=== PATIENT | male | born 1945 | race Caucasian/White ===

== ENCOUNTER 2024-10-21 19:53 | Inpatient (IN) ==
[2024-10-21 20:30] LABS: Basophils # (auto) 0.01 K/uL (0.00-0.20); Basophils % (auto) 0.1 %; Hematocrit (blood only) 25.1 % (42.0-52.0); Hemoglobin 8.5 g/dl (14.0-18.0); Immature Granulocytes # (auto) 0.09 K/uL (0.01-0.20); Immature Granulocytes % (auto) 0.7 %; Lymphocytes # (auto) 0.64 K/uL (1.20-3.40); Lymphocytes % (auto) 4.7 %; Mean Corpuscular Hemoglobin 30.1 pg (25.0-34.0); Mean Corpuscular Hgb Conc 33.9 g/dL (32.0-36.0); Mean Platelet Volume 10.2 fL (9.4-12.4); Monocytes # (auto) 0.77 K/uL (0.11-0.59); Monocytes % (auto) 5.7 %; Neutrophils # (auto) 11.98 K/uL (1.40-6.50); Neutrophils % (auto) 88.8 %; Platelet Count 363 K/uL (130-400); RDW Coefficient of Variation 13.5 % (11.5-14.5); RDW Standard Deviation 43.8 fL (36.4-46.3); Red Blood Count 2.82 M/uL (4.70-6.10); White Blood Count 13.49 K/ul (4.8-10.8)
[2024-10-21] MEDS: SODIUM CHLORIDE 0.9% 500 ML IV ONE (20:39)
--- NOTE | 2024-10-21 20:42 | Emergency Department Note ---
Impression & Plan Post-operative pain, Acute hyponatremia, Back pain, Weakness ED Provider Note NAME: BERHANE KHAN AGE: 79 SEX: M : 1945 ARRIVES VIA: Walk-In INFORMANT: Patient, ED PROVIDER(S): Gray Wise DO CHIEF COMPLAINT: Weakness HPI: The patient is a 79-year-old male who presented to the emergency department for an evaluation of weakness. The patient has been having weakness over the last 24 hours. He had a recent back surgery in his lumbar spine. He is had trouble eating and getting around his home. He denies having any fever. He said no chest pain. He said no vomiting. He denies having any dysuria or frequency. He was seen by his therapist today and sent to the emergency department because they are afraid that he is just getting weaker. He is also been constipated. He was treated with [id number] medication for constipation. ROS: See above HPI for pertinent positives & negatives. A total of 10 systems reviewed and were otherwise negative. PAST MEDICAL HISTORY: See Below PAST SURGICAL HISTORY: See Below FAMILY HISTORY: See Below SOCIAL HISTORY: See Below HOME MEDICATIONS: See Below ALLERGIES: See Below VITALS: See Below PHYSICAL EXAMINATION: GENERAL: The patient is awake and alert. He is somewhat frail appearing. EYES: The conjunctivae are clear. The pupils are round and reactive. EARS, NOSE, MOUTH AND THROAT: The nose is without any evidence of any deformity. Mucous membranes are dry. NECK: The neck is nontender and supple. RESPIRATORY: Normal respiratory effort is noted there is no evidence of wheezing rhonchi or rales CARDIOVASCULAR: Regular rate and rhythm noted there no murmurs rubs or gallops normal S1 normal S2. GASTROINTESTINAL: The abdomen is mildly distended. There is no guarding rigidity noted. BACK: Postoperative site was noted. There is no erythema drainage or dehiscence. Tenderness to palpation was noted. MUSCULOSKELETAL/EXTREMITIES: There is no evidence of gross deformity full range of motion is noted in the hips and shoulders. SKIN: There is no obvious evidence of any rash. There are no petechiae, pallor or cyanosis noted. NEUROLOGIC: Patient is awake alert and oriented x3. 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 The patient has weakness in both legs. Weakness is symmetric. MEDICAL DECISION MAKING: The patient is a 79-year-old male who is 9 days status post lumbar spine surgery who presented to the emergency department for generalized weakness. The patient did not want to go to inpatient rehab. He was discharged directly to home. His states that he has not been doing well. He has not been ambulating as well. He has been having more back pain and constipation. The patient was treated with IV fluids in the emergency department. He states he has not been eating or drinking. I discussed the patient's laboratory and radiographic studies with him. He was found to have hyponatremia. The patient had studies to ensure there was no postoperative abnormality noted. CT of the lumbar spine as well as the abdomen pelvis did not appear to show any acute pathologic issues. I discussed the patient's condition with the emergency department case management. To try to get the patient into inpatient rehab at this time would not be easy so they did recommend evaluation by the hospitalist for possible inpatient management as well as evaluation by OT PT. [facility] Triage Nursing notes reviewed. Prior medical records reviewed Vital Signs: reviewed and remarkable for bradycardia. Differential diagnosis: Infection, dehydration, metabolic abnormality, hypo/hyperglycemia, electrolyte disturbance, anemia, hypoxia, cardiac sources, intracerebral event, toxicologic, neurologic, as well as other pathologies. ER treatment provided: See below Diagnostics interpreted by me: ECG: EKG was obtained in the emergency department. My interpretation is sinus bradycardia at 56 bpm. Left bundle branch block pattern was noted. There were no PVCs noted. This was compared to a tracing from February 03, 2024. No changes were noted. Cardiac Monitoring: An order was placed for continuous cardiac monitoring. The monitor shows a rate of 59 bpm with sinus bradycardia. Laboratory studies: As stated above and show below. Imaging studies: See below. Radiographic imaging was reviewed by myself Consultation(s): I discussed this case with Dr. Morales who [facility] Past Med/Surg History Problem List (Updated 10/21/24 @ 22:40 by Gray Wise DO) Weakness (Acute) Back pain (Acute) Acute hyponatremia (Acute) Post-operative pain (Acute) Anxiety Gout Prediabetes Dyslipidemia Hypertension Multilevel lumbosacral spondylosis with radiculopathy Encounter for pre-operative examination Medical History Ascending aorta enlargement Echo 12/2023: Borderline enlarged ascending aorta, 3.7 cm History of left bundle branch block (LBBB) Dating back to at least 11/2022 per cardio records Hx of diverticulitis of colon History of prostate cancer Dx "years ago"; s/p prostatectomy History of anxiety Hx of gout Hx of hyperlipidemia History of hypertension Surgical History History of ERCP EUS/ERCP (05/10/16): Glidescope#4, ETT 7.5 at [facility] Hx of difficult intubation Per [facility] 2016 records, "anesthesia notes from 2013 prostate surgery, needed glidescope after 3 attempts" Hx of cholecystectomy History of esophagogastroduodenoscopy (EGD) Hx of colonoscopy Hx of lumbosacral spine surgery 2009, L4-L5 decompression and fusion History of prostatectomy Hx of eye surgery metal removed from eye Social History Smoking Status: Never smoker Tobacco Type: Smokeless Tobacco (Dip or Chew) Second Hand Exposure: Yes (hx many years ago); Do You Dip or Chew Tobacco: Yes (Few times/week- Advised none DOS); Hx Alcohol Use: Yes Alcohol type: beer and hard liquor Hx Substance Use: No Preferred Language: Italian Communication Ability: Effective Music Specialist Required: No Beliefs That Will Affect Care: None Current Living Situation: Spouse Feels Safe at Home: Yes Assistive Devices: Cane, Crutches and Walker Allergies Allergies Allergy/AdvReac Type Severity Reaction Status Date / Time aspirin Allergy Intermediate Rash Verified 10/21/24 22:16 Home Meds Home Medications Medication Instructions Recorded Confirmed allopurinol 300 mg tablet 300 mg PO QAM 09/21/24 10/21/24 amlodipine 10 mg tablet (Norvasc) 10 mg PO QAM 09/21/24 10/21/24 atorvastatin 40 mg tablet (Lipitor) 40 mg PO QAM 09/21/24 10/21/24 cholecalciferol (vitamin D3) 125 250 mcg PO QAM 09/21/24 10/21/24 mcg (5,000 unit) tablet (Vitamin D3) lisinopril 40 mg tablet 40 mg PO QAM 09/21/24 10/21/24 sertraline 100 mg tablet (Zoloft) 100 mg PO QAM 09/21/24 10/21/24 Previous Rx's Medication Instructions Recorded oxycodone 5 mg tablet 5 mg PO Q6H PRN pain #30 tabs 10/12/24 tramadol 50 mg tablet 50 mg PO Q6H PRN pain, moderate 10/12/24 #30 tabs Results & Data (ED) Vital Signs Vital Signs - 24 hr 10/21/24 19:57 10/21/24 20:10 10/21/24 20:14 Temperature 37 C Temperature Source Temporal Artery Scan Pulse Rate 73 62 93 H Pulse Rate [Right Finger] Pulse Rhythm Regular Respiratory Rate 16 20 Respiratory Effort / Characteristics Respiratory Depth Respiratory Pattern Blood Pressure 140/59 L Blood Pressure [Right Arm] Blood Pressure Mean 86 Blood Pressure Mean [Right Arm] Pulse Oximetry 93 Oxygen Delivery Method Room Air Room Air Sepsis Recent Fever Within 48 Hours No Sepsis New/Unexplained Change in Mental Status No Sepsis Action Taken by Nursing No Action Required 10/21/24 20:20 Temperature Temperature Source Pulse Rate Pulse Rate [Right Finger] 59 L Pulse Rhythm Respiratory Rate 20 Respiratory Effort / Characteristics Non-Labored Spontaneous Respiratory Depth Normal Respiratory Pattern Regular Blood Pressure Blood Pressure [Right Arm] 149/57 H Blood Pressure Mean Blood Pressure Mean [Right Arm] 87 Pulse Oximetry 96 Oxygen Delivery Method Room Air Sepsis Recent Fever Within 48 Hours Sepsis New/Unexplained Change in Mental Status Sepsis Action Taken by Shelter Medications Current Medication List: was personally reviewed by me Laboratory Data Attestation: I reviewed the patient's lab results. 10/21/24 20:18 10/21/24 20:18 Lab Results 10/21/24 10/21/24 10/21/24 Range/Units 20:18 20:40 22:02 WBC 13.49 H (4.8-10.8) K/ul RBC 2.82 L (4.70-6.10) M/uL Hgb 8.5 L (14.0-18.0) g/dl Hct 25.1 L (42.0-52.0) % MCV 89.0 (80.0-100.0) fL MCH 30.1 (25.0-34.0) pg MCHC 33.9 (32.0-36.0) g/dL RDW Std Deviation 43.8 (36.4-46.3) fL RDW Coeff of Benson 13.5 (11.5-14.5) % Plt Count 363 (130-400) K/uL MPV 10.2 (9.4-12.4) fL Immature Gran % (Auto) 0.7 % Neut % (Auto) 88.8 % Lymph % (Auto) 4.7 % Meriwether % (Auto) 5.7 % Eos % (Auto) 0.0 % Baso % (Auto) 0.1 % Neut # (Auto) 11.98 H (1.40-6.50) K/uL Lymph # (Auto) 0.64 L (1.20-3.40) K/uL Meriwether # (Auto) 0.77 H (0.11-0.59) K/uL Eos # (Auto) 0.00 (0.00-0.50) K/uL Baso # (Auto) 0.01 (0.00-0.20) K/uL Immature Gran # (Auto) 0.09 (0.01-0.20) K/uL PT 11.3 (9.0-12.0) Seconds INR 1.0 (0.9-1.1) APTT 31 (21-31) Seconds PTT Ratio 1.2 Sodium 129 L (136-145) mmol/L Potassium 3.7 (3.5-5.1) mmol/L Chloride 93 L (98-107) mmol/L Carbon Dioxide 28 (21-32) mmol/L Anion Gap 8 (3-11) BUN 21 (6-23) mg/dl Creatinine 0.65 (0.6-1.4) mg/dl Est Cr Clr Drug Dosing Not Reportable eGFR 97.05 BUN/Creatinine Ratio 32.3 H (10-20) Glucose 120 H (70-99(Fasting)) mg/dl Calcium 9.2 (8.6-10.3) mg/dl Total Bilirubin 0.6 (0.2-1.0) mg/dl AST 57 H (13-39) U/L ALT 34 (7-52) U/L Alkaline Phosphatase 152 H (34-104) U/L Troponin I High Sens 28.1 H 33.2 H (0-20) pg/ml Total Protein 7.5 (6.0-8.3) gm/dl Albumin 3.5 (3.4-5.0) gm/dl Globulin 4.0 (2.5-4.0) gm/dl Albumin/Globulin Ratio 0.9 (0.9-2) Lipase 51 (11-82) U/L SARS-CoV-2 (PCR) NEGATIVE (Negative) Influenza Type A (PCR) Negative (Neg) Influenza Type B (PCR) Negative (Neg) RSV (RT-PCR) Negative (Neg) Administered Medications Discontinued Medications Sodium Chloride (Nss) 500 mls @ 999 mls/hr IV .Q31M ONE Stop: 10/21/24 21:04 Last Infusion: 10/21/24 21:10 Dose: Infused Documented By: Admin: 10/21/24 20:39 Dose: 999 mls/hr Documented By: RAÚL Ioversol (Optiray 320 100ml) 90 ml IV ONCE ONE Stop: 10/21/24 21:00 Last Admin: 10/21/24 20:59 Dose: 90 ml Documented By: MADDIE Imaging Data Attestation: I personally reviewed and interpreted this imaging study as follows: My Impression: 1 view chest x-ray was obtained in the emergency department. My interpretation is no free air or definite infiltrate, final report below. CT of the abdomen and pelvis was obtained in the emergency department. My interpretation is no free air or signs of bowel obstruction, final report below. Radiologist's Impression: Chest X-Ray 10/21/24 20:14 Exam(s): XR CXR 1 VIEW EXAM: XR Chest, 1 View CLINICAL HISTORY: Reason for exam: weak. TECHNIQUE: Frontal view of the chest. COMPARISON: 12/05/08 FINDINGS: Lungs: Unremarkable. No consolidation. Pleural space: Unremarkable. No pneumothorax. Heart: Unremarkable. No cardiomegaly. Mediastinum: Unremarkable. Normal mediastinal contour. Bones/joints: Unremarkable. No acute fracture. IMPRESSION: Normal chest x-ray. Electronically signed by: Arturo Smith MD 10/21/24 22:20 PM Abdomen/Pelvis CT 10/21/24 20:34 Exam(s): CT ABDOMEN + PELVIS With Contrast IV Amt: 90 ml optiray 320 EXAM: CT Abdomen and Pelvis With Intravenous Contrast CLINICAL HISTORY: Reason for exam: lower pain. TECHNIQUE: Axial computed tomography images of the abdomen and pelvis with intravenous contrast. Automated exposure control was utilized for the study. A dose lowering technique was utilized adhering to the principles of ALARA. CONTRAST: Patient received 90 ml optiray 320 of IV contrast COMPARISON: 05/08/16 FINDINGS: Lung bases: Subsegmental atelectasis seen in the lung bases. Heart: Mild coronary vascular calcification seen. ABDOMEN: Liver: Unremarkable. No mass. Gallbladder and bile ducts: Cholecystectomy. No ductal dilation. Pancreas: Unremarkable. No mass. No ductal dilation. Spleen: Unremarkable. No splenomegaly. Adrenals: Unremarkable. No mass. Kidneys and ureters: Atherosclerotic calcification seen in the proximal 1 cm of bilateral main renal arteries. No solid mass. No hydronephrosis. Stomach and bowel: Sigmoid colonic diverticulosis. No obstruction. No mucosal thickening. PELVIS: Appendix: No findings to suggest acute appendicitis. Bladder: Unremarkable. No mass. Reproductive: Ductus deferens calcifications are seen. ABDOMEN and PELVIS: Intraperitoneal space: Unremarkable. No free air. No significant fluid collection. Bones/joints: Postlaminectomy changes seen in the lumbar spine along with posterior spinal fusion changes L2-S1 levels along with disc spacers. No acute fracture. No dislocation. Soft tissues: Unremarkable. Vasculature: Moderate atherosclerotic calcification seen in the aorta and its branches. Lymph nodes: Unremarkable. No enlarged lymph nodes. IMPRESSION: No acute abdominal process identified Electronically signed by: Arturo Smith MD 10/21/24 22:[address] 10/21/24 20:34 Exam(s): CT L SPINE With Contrast IV Amt: 90 ml optiray 320 EXAM: CT Lumbar Spine With Intravenous Contrast CLINICAL HISTORY: Reason for exam: weakness, recent lumbar surgery. TECHNIQUE: Axial computed tomography images of the lumbar spine with intravenous contrast. Automated exposure control was utilized for the study. A dose lowering technique was utilized adhering to the principles of ALARA. CONTRAST: Patient received 90 ml optiray 320 of IV contrast COMPARISON: No relevant prior studies available. FINDINGS: Vertebrae: Postlaminectomy changes seen at L2-L5 levels along with L2- S1 posterior spinal fusion changes. Small foci of air seen in the laminectomy bed. The spacers are seen at L2/3, L3/4, L4/5 and L5/S1 junction. Discs/spinal canal/neural foramina: Moderately advanced multilevel degenerative disc disease changes seen along with marginal osteophytes. IMPRESSION: No acute fracture L2-S1 posterior spinal fusion changes. Electronically signed by: Arturo Smith MD 10/21/24 22:31 PM Discharge Plan Visit Data Chief Complaint: Weakness Stated Complaint: WEAKNESS ED Provider: Gray Wise Discharge Problem: Post-operative pain, Acute hyponatremia, Back pain, Weakness Patient Disposition: Being Evaluated by Hospitalist Forms Stand Alone Forms: My [facility] Prescriptions Prescriptions: No Action atorvastatin [Lipitor] 40 mg Tablet 40 mg PO QAM sertraline [Zoloft] 100 mg Tablet 100 mg PO QAM amlodipine [Norvasc] 10 mg Tablet 10 mg PO QAM allopurinol 300 mg Tablet 300 mg PO QAM lisinopril 40 mg Tablet 40 mg PO QAM cholecalciferol (vitamin D3) [Vitamin D3] 125 mcg (5,000 unit) Tablet 250 mcg PO QAM Rx Instructions: PER PT'S "TAKING 10,000 UNITS FOR 2 WEEKS POST-SURGERY". tramadol 50 mg tablet 50 mg PO Q6H PRN (Reason: pain, moderate) Qty: 30 0RF oxycodone 5 mg tablet 5 mg PO Q6H PRN (Reason: pain) Qty: 30 0RF Referrals Referrals: Arely Griffin DO [Primary Care Provider] -
[2024-10-21 20:46] LABS: Alanine Aminotransferase 34 U/L (7-52); Albumin Globulin Ratio 0.9 (0.9-2); Albumin Level 3.5 gm/dl (3.4-5.0); Alkaline Phosphatase 152 U/L (34-104); Anion Gap 8 (3-11); Aspartate Aminotransferase 57 U/L (13-39); BUN Creatinine Ratio 32.3 (10-20); Bilirubin,Total 0.6 mg/dl (0.2-1.0); Blood Urea Nitrogen 21 mg/dl (6-23); Calcium 9.2 mg/dl (8.6-10.3); Carbon Dioxide 28 mmol/L (21-32); Chloride 93 mmol/L (98-107); Glucose 120 mg/dl (70-99(Fasting)); Lipase 51 U/L (11-82); Potassium 3.7 mmol/L (3.5-5.1); Sodium 129 mmol/L (136-145); Total Protein 7.5 gm/dl (6.0-8.3)
[2024-10-21 20:53] LABS: Troponin I High Sensitivity 28.1 pg/ml (0-20)
[2024-10-21] MEDS: OPTIRAY 320 100ml IV ONE (20:59)
[2024-10-21 21:09] LABS: Partial Thromboplastin Ratio 1.2; Partial Thromboplastin Time 31 Seconds (21-31); Prothrombin Time 11.3 Seconds (9.0-12.0)
[2024-10-21 21:26] LABS: Influenza A virus by PCR Negative (Neg); Influenza B virus by PCR Negative (Neg); RSV by PCR Negative (Neg); SARS CoV2 RNA(COVID-19) Ceph NEGATIVE (Negative)
--- NOTE | 2024-10-21 22:21 | XRay Report ---
Exam(s): XR CXR 1 VIEW EXAM: XR Chest, 1 View CLINICAL HISTORY: Reason for exam: weak. TECHNIQUE: Frontal view of the chest. COMPARISON: 12/05/08 FINDINGS: Lungs: Unremarkable. No consolidation. Pleural space: Unremarkable. No pneumothorax. Heart: Unremarkable. No cardiomegaly. Mediastinum: Unremarkable. Normal mediastinal contour. Bones/joints: Unremarkable. No acute fracture. IMPRESSION: Normal chest x-ray. Electronically signed by: Arturo Smith MD 10/21/24 22:20 PM
--- NOTE | 2024-10-21 22:28 | CT Scan Report ---
Exam(s): CT ABDOMEN + PELVIS With Contrast IV Amt: 90 ml optiray 320 EXAM: CT Abdomen and Pelvis With Intravenous Contrast CLINICAL HISTORY: Reason for exam: lower pain. TECHNIQUE: Axial computed tomography images of the abdomen and pelvis with intravenous contrast. Automated exposure control was utilized for the study. A dose lowering technique was utilized adhering to the principles of ALARA. CONTRAST: Patient received 90 ml optiray 320 of IV contrast COMPARISON: 05/08/16 FINDINGS: Lung bases: Subsegmental atelectasis seen in the lung bases. Heart: Mild coronary vascular calcification seen. ABDOMEN: Liver: Unremarkable. No mass. Gallbladder and bile ducts: Cholecystectomy. No ductal dilation. Pancreas: Unremarkable. No mass. No ductal dilation. Spleen: Unremarkable. No splenomegaly. Adrenals: Unremarkable. No mass. Kidneys and ureters: Atherosclerotic calcification seen in the proximal 1 cm of bilateral main renal arteries. No solid mass. No hydronephrosis. Stomach and bowel: Sigmoid colonic diverticulosis. No obstruction. No mucosal thickening. PELVIS: Appendix: No findings to suggest acute appendicitis. Bladder: Unremarkable. No mass. Reproductive: Ductus deferens calcifications are seen. ABDOMEN and PELVIS: Intraperitoneal space: Unremarkable. No free air. No significant fluid collection. Bones/joints: Postlaminectomy changes seen in the lumbar spine along with posterior spinal fusion changes L2-S1 levels along with disc spacers. No acute fracture. No dislocation. Soft tissues: Unremarkable. Vasculature: Moderate atherosclerotic calcification seen in the aorta and its branches. Lymph nodes: Unremarkable. No enlarged lymph nodes. IMPRESSION: No acute abdominal process identified Electronically signed by: Arturo Smith MD 10/21/24 22:27 PM
--- NOTE | 2024-10-21 22:32 | CT Scan Report ---
Exam(s): CT L SPINE With Contrast IV Amt: 90 ml optiray 320 EXAM: CT Lumbar Spine With Intravenous Contrast CLINICAL HISTORY: Reason for exam: weakness, recent lumbar surgery. TECHNIQUE: Axial computed tomography images of the lumbar spine with intravenous contrast. Automated exposure control was utilized for the study. A dose lowering technique was utilized adhering to the principles of ALARA. CONTRAST: Patient received 90 ml optiray 320 of IV contrast COMPARISON: No relevant prior studies available. FINDINGS: Vertebrae: Postlaminectomy changes seen at L2-L5 levels along with L2- S1 posterior spinal fusion changes. Small foci of air seen in the laminectomy bed. The spacers are seen at L2/3, L3/4, L4/5 and L5/S1 junction. Discs/spinal canal/neural foramina: Moderately advanced multilevel degenerative disc disease changes seen along with marginal osteophytes. IMPRESSION: No acute fracture L2-S1 posterior spinal fusion changes. Electronically signed by: Arturo Smith MD 10/21/24 22:31 PM
--- NOTE | 2024-10-21 23:52 | History & Physical Report ---
Date of Service October 21, 2024 Assessment & Plan (1) Weakness: Plan: 79-year-old male with past medical history significant for dyslipidemia, prediabetes, ascending aortic enlargement, left bundle branch block, hypertension, irritable bowel syndrome, steatohepatitis, generalized osteoarthritis, lumbar disc disease, history of prostate cancer, spinal stenosis status post back surgery on 10/11/2024 comes because of weakness and ambulatory dysfunction and back pain. As per after back surgery rehab was recommended but patient declined and went home. He was getting physical therapy at home. For first few days he did okay but last few days he was having difficulty ambulating. He was having weakness and also severe back pain which causing ambulatory dysfunction. He also had a bowel accident because he could not ambulate to the bathroom in time as per the . Patient is hard of hearing. in the room helped with H&P. Patient denies any headache. No runny nose or sore throat. No cough. No fevers. No chest pain or shortness of breath. No nausea. Drinking okay but not eating much as per . No abdominal pain. Constipated. Denies any blood in stools or black stools. Micturating okay. Hemodynamics are okay. Weakness Ambulatory dysfunction Back pain Recent back surgery PT OT CT lumbar spine and CT abdomen pelvis no acute findings [facility]ospine consult May need rehab placement Hyponatremia Sodium 129 Will follow urine osmolality, serum osmolality and urine sodium levels Gentle fluids Could be contributing to weakness Follow repeat labs closely Leukocytosis Chest x-ray okay Will follow UA Mild elevation troponin Initial troponin 28 and repeat 33 asymptomatic EKG okay We will follow repeat levels If any concerns will consult cardiology and echo Anemia Hemoglobin 8.5 Hemoglobin was 8 on 10/15/2024 Mostly Postop Needs follow-up Prediabetes Follow HbA1c levels Hypertension on amlodipine, and lisinopril Will monitor Hyperlipidemia On statin Depression On Zoloft Ascending aortic enlargement Borderline enlarged at 3.7 cm on echo 12/2023 DVT prophylaxis Lovenox. Will monitor h and h Disposition Medical floor Full code History of Present Illness Chief Complaint: Weakness and ambulatory dysfunction Primary Care Provider: Arely Griffin DO 79-year-old male with past medical history significant for dyslipidemia, prediabetes, ascending aortic enlargement, left bundle branch block, hypertension, irritable bowel syndrome, steatohepatitis, generalized osteoarthritis, lumbar disc disease, history of prostate cancer, spinal stenosis status post back surgery on 10/11/2024 comes because of weakness and ambulatory dysfunction and back pain. As per after back surgery rehab was recommended but patient declined and went home. He was getting physical therapy at home. For first few days he did okay but last few days he was having difficulty ambulating. He was having weakness and also severe back pain which causing ambulatory dysfunction. He also had a bowel accident because he could not ambulate to the bathroom in time as per the . Patient is hard of hearing. in the room helped with H&P. Patient denies any headache. No runny nose or sore throat. No cough. No fevers. No chest pain or shortness of breath. No nausea. Drinking okay but not eating much as per . No abdominal pain. Constipated. Denies any blood in stools or black stools. Micturating okay. Hemodynamics are okay. Past medical history. As mentioned above Past surgical history. Colonoscopy. EGD. EGD with biopsy. EGD with endoscopic ultrasound. ERCP. Injection of lumbosacral spine. Laparoscopic cholecystectomy. Excision of the neck/chest subcutaneous tumor. Robotic laparoscopic prostatectomy. Social history. . No smoking. Snuff. 5.8 standard drinks of alcohol per week as per epic. No drug use. Family history. Mother had heart disorder. Paternal grandmother had heart disorder. Paternal grandfather had heart disorder. Allergies Allergy/AdvReac Type Severity Reaction Status Date / Time aspirin Allergy Intermediate Rash Verified 10/21/24 22:16 Home Medications Medication Instructions Recorded Confirmed Type allopurinol 300 mg tablet 300 mg PO QAM 09/21/24 10/21/24 History amlodipine 10 mg tablet (Norvasc) 10 mg PO QAM 09/21/24 10/21/24 History atorvastatin 40 mg tablet (Lipitor) 40 mg PO QAM 09/21/24 10/21/24 History cholecalciferol (vitamin D3) 125 250 mcg PO QAM 09/21/24 10/21/24 History mcg (5,000 unit) tablet (Vitamin D3) lisinopril 40 mg tablet 40 mg PO QAM 09/21/24 10/21/24 History sertraline 100 mg tablet (Zoloft) 100 mg PO QAM 09/21/24 10/21/24 History oxycodone 5 mg tablet 5 mg PO Q6H PRN pain #30 tabs 10/12/24 10/21/24 Rx tramadol 50 mg tablet 50 mg PO Q6H PRN pain, moderate 10/12/24 10/21/24 Rx #30 tabs Past Med/Surg History Problem List (Updated 10/21/24 @ 22:40 by Gray Wise DO) Weakness (Acute) Back pain (Acute) Acute hyponatremia (Acute) Post-operative pain (Acute) Anxiety Gout Prediabetes Dyslipidemia Hypertension Multilevel lumbosacral spondylosis with radiculopathy Encounter for pre-operative examination Medical History Ascending aorta enlargement Echo 12/2023: Borderline enlarged ascending aorta, 3.7 cm History of left bundle branch block (LBBB) Dating back to at least 11/2022 per cardio records Hx of diverticulitis of colon History of prostate cancer Dx "years ago"; s/p prostatectomy History of anxiety Hx of gout Hx of hyperlipidemia History of hypertension Surgical History History of ERCP EUS/ERCP (05/10/16): Glidescope#4, ETT 7.5 at [facility] Hx of difficult intubation Per [facility] 2016 records, "anesthesia notes from 2013 prostate surgery, needed glidescope after 3 attempts" Hx of cholecystectomy History of esophagogastroduodenoscopy (EGD) Hx of colonoscopy Hx of lumbosacral spine surgery 2009, L4-L5 decompression and fusion History of prostatectomy Hx of eye surgery metal removed from eye Social History Smoking Status: Never smoker Tobacco Type: Smokeless Tobacco (Dip or Chew) Second Hand Exposure: Yes; Do You Dip or Chew Tobacco: Yes; Tobacco Cessation Education Requested by Patient: No Hx Alcohol Use: Yes Alcohol type: beer Hx Substance Use: No Preferred Language: Montserratian Communication Ability: Effective Molding Cutter Required: No Beliefs That Will Affect Care: None Current Living Situation: Spouse Current Living Situation Comment: lives with Other Information That Helps Us Care for You: No Feels Safe at Home: Yes Safety Concerns: Feels Safe At This Time Assistive Devices: Glasses and Walker Review of Systems Review of Systems: All systems reviewed & are unremarkable except as noted in HPI & below Physical Exam Physical Exam: General- Not in distress Head- atraumatic Eyes- PERRL. ENT- oropharynx clear Neck- supple, no JVD. Lungs- clear to auscultation no wheezing or crackles Heart- regular rhythm; no murmur, no gallop. Abdomen- normal bowel sounds, soft, nontender, no distension Extremities- no pretibial edema, no erythema seen Neuro- alert, oriented ; PERRL,no facial palsy; no dysarthria; moves extremities Musculoskeletal recent lower back surgery site no obvious drainage or erythema seen Results & Data Results & Data Vital Signs (Past 12 Hours) Vital Signs Temp Pulse Pulse Pulse Resp BP BP 10/21/24 23:00 64 24 146/79 H 10/21/24 20:20 59 L 20 149/57 H 10/21/24 20:14 93 H 20 10/21/24 20:10 62 10/21/24 19:57 37 C 73 16 140/59 L Pulse Ox O2 Del Method 10/21/24 23:00 94 10/21/24 20:20 96 Room Air 10/21/24 20:14 93 Room Air 10/21/24 20:10 10/21/24 19:57 Room Air Diagnostic Findings Laboratory Results WBC 13.49 K/ul (4.8-10.8) H 10/21/24 20:18 RBC 2.82 M/uL (4.70-6.10) L 10/21/24 20:18 Hgb 8.5 g/dl (14.0-18.0) L 10/21/24 20:18 Hct 25.1 % (42.0-52.0) L 10/21/24 20:18 MCV 89.0 fL (80.0-100.0) 10/21/24 20:18 MCH 30.1 pg (25.0-34.0) 10/21/24 20:18 MCHC 33.9 g/dL (32.0-36.0) 10/21/24 20:18 RDW Std Deviation 43.8 fL (36.4-46.3) 10/21/24 20:18 RDW Coeff of Benson 13.5 % (11.5-14.5) 10/21/24 20:18 Plt Count 363 K/uL (130-400) 10/21/24 20:18 MPV 10.2 fL (9.4-12.4) 10/21/24 20:18 Immature Gran % (Auto) 0.7 % 10/21/24 20:18 Neut % (Auto) 88.8 % 10/21/24 20:18 Lymph % (Auto) 4.7 % 10/21/24 20:18 Sequoyah % (Auto) 5.7 % 10/21/24 20:18 Eos % (Auto) 0.0 % 10/21/24 20:18 Baso % (Auto) 0.1 % 10/21/24 20:18 Neut # (Auto) 11.98 K/uL (1.40-6.50) H 10/21/24 20:18 Lymph # (Auto) 0.64 K/uL (1.20-3.40) L 10/21/24 20:18 Sequoyah # (Auto) 0.77 K/uL (0.11-0.59) H 10/21/24 20:18 Eos # (Auto) 0.00 K/uL (0.00-0.50) 10/21/24 20:18 Baso # (Auto) 0.01 K/uL (0.00-0.20) 10/21/24 20:18 Immature Gran # (Auto) 0.09 K/uL (0.01-0.20) 10/21/24 20:18 PT 11.3 Seconds (9.0-12.0) 10/21/24 20:18 INR 1.0 (0.9-1.1) 10/21/24 20:18 APTT 31 Seconds (21-31) 10/21/24 20:18 PTT Ratio 1.2 10/21/24 20:18 Sodium 129 mmol/L (136-145) L 10/21/24 20:18 Potassium 3.7 mmol/L (3.5-5.1) 10/21/24 20:18 Chloride 93 mmol/L (98-107) L 10/21/24 20:18 Carbon Dioxide 28 mmol/L (21-32) 10/21/24 20:18 Anion Gap 8 (3-11) 10/21/24 20:18 BUN 21 mg/dl (6-23) 10/21/24 20:18 Creatinine 0.65 mg/dl (0.6-1.4) 10/21/24 20:18 Est Cr Clr Drug Dosing Not Reportable 10/21/24 20:18 eGFR 97.05 10/21/24 20:18 BUN/Creatinine Ratio 32.3 (10-20) H 10/21/24 20:18 Glucose 120 mg/dl (70-99(Fasting)) H 10/21/24 20:18 Osmolality 272 mOsm/kg (280-300) L 10/21/24 20:18 Calcium 9.2 mg/dl (8.6-10.3) 10/21/24 20:18 Total Bilirubin 0.6 mg/dl (0.2-1.0) 10/21/24 20:18 AST 57 U/L (13-39) H 10/21/24 20:18 ALT 34 U/L (7-52) 10/21/24 20:18 Alkaline Phosphatase 152 U/L (34-104) H 10/21/24 20:18 Troponin I High Sens 33.2 pg/ml (0-20) H 10/21/24 22:02 Total Protein 7.5 gm/dl (6.0-8.3) 10/21/24 20:18 Albumin 3.5 gm/dl (3.4-5.0) 10/21/24 20:18 Globulin 4.0 gm/dl (2.5-4.0) 10/21/24 20:18 Albumin/Globulin Ratio 0.9 (0.9-2) 10/21/24 20:18 Lipase 51 U/L (11-82) 10/21/24 20:18 SARS-CoV-2 (PCR) NEGATIVE (Negative) 10/21/24 20:40 Influenza Type A (PCR) Negative (Neg) 10/21/24 20:40 Influenza Type B (PCR) Negative (Neg) 10/21/24 20:40 RSV (RT-PCR) Negative (Neg) 10/21/24 20:40 Impressions Chest X-Ray 10/21/24 20:14 Exam(s): XR CXR 1 VIEW EXAM: XR Chest, 1 View CLINICAL HISTORY: Reason for exam: weak. TECHNIQUE: Frontal view of the chest. COMPARISON: 12/05/08 FINDINGS: Lungs: Unremarkable. No consolidation. Pleural space: Unremarkable. No pneumothorax. Heart: Unremarkable. No cardiomegaly. Mediastinum: Unremarkable. Normal mediastinal contour. Bones/joints: Unremarkable. No acute fracture. IMPRESSION: Normal chest x-ray. Electronically signed by: Arturo Smith MD 10/21/24 22:20 PM Abdomen/Pelvis CT 10/21/24 20:34 Exam(s): CT ABDOMEN + PELVIS With Contrast IV Amt: 90 ml optiray 320 EXAM: CT Abdomen and Pelvis With Intravenous Contrast CLINICAL HISTORY: Reason for exam: lower pain. TECHNIQUE: Axial computed tomography images of the abdomen and pelvis with intravenous contrast. Automated exposure control was utilized for the study. A dose lowering technique was utilized adhering to the principles of ALARA. CONTRAST: Patient received 90 ml optiray 320 of IV contrast COMPARISON: 05/08/16 FINDINGS: Lung bases: Subsegmental atelectasis seen in the lung bases. Heart: Mild coronary vascular calcification seen. ABDOMEN: Liver: Unremarkable. No mass. Gallbladder and bile ducts: Cholecystectomy. No ductal dilation. Pancreas: Unremarkable. No mass. No ductal dilation. Spleen: Unremarkable. No splenomegaly. Adrenals: Unremarkable. No mass. Kidneys and ureters: Atherosclerotic calcification seen in the proximal 1 cm of bilateral main renal arteries. No solid mass. No hydronephrosis. Stomach and bowel: Sigmoid colonic diverticulosis. No obstruction. No mucosal thickening. PELVIS: Appendix: No findings to suggest acute appendicitis. Bladder: Unremarkable. No mass. Reproductive: Ductus deferens calcifications are seen. ABDOMEN and PELVIS: Intraperitoneal space: Unremarkable. No free air. No significant fluid collection. Bones/joints: Postlaminectomy changes seen in the lumbar spine along with posterior spinal fusion changes L2-S1 levels along with disc spacers. No acute fracture. No dislocation. Soft tissues: Unremarkable. Vasculature: Moderate atherosclerotic calcification seen in the aorta and its branches. Lymph nodes: Unremarkable. No enlarged lymph nodes. IMPRESSION: No acute abdominal process identified Electronically signed by: Arturo Smith MD 10/21/24 22:[address] 10/21/24 20:34 Exam(s): CT L SPINE With Contrast IV Amt: 90 ml optiray 320 EXAM: CT Lumbar Spine With Intravenous Contrast CLINICAL HISTORY: Reason for exam: weakness, recent lumbar surgery. TECHNIQUE: Axial computed tomography images of the lumbar spine with intravenous contrast. Automated exposure control was utilized for the study. A dose lowering technique was utilized adhering to the principles of ALARA. CONTRAST: Patient received 90 ml optiray 320 of IV contrast COMPARISON: No relevant prior studies available. FINDINGS: Vertebrae: Postlaminectomy changes seen at L2-L5 levels along with L2- S1 posterior spinal fusion changes. Small foci of air seen in the laminectomy bed. The spacers are seen at L2/3, L3/4, L4/5 and L5/S1 junction. Discs/spinal canal/neural foramina: Moderately advanced multilevel degenerative disc disease changes seen along with marginal osteophytes. IMPRESSION: No acute fracture L2-S1 posterior spinal fusion changes. Electronically signed by: Arturo Smith MD 10/21/24 22:31 PM ECG Additional Comments: ECG. Sinus bradycardia with sinus arrhythmia rate of 56. Left bundle branch block. No significant change was found. Code Status & VTE Plan VTE Prophylaxis Plan VTE Prophylaxis will be ordered: Yes
[2024-10-22] MEDS ORDERED: POLYETHYLENE (MIRALAX) 17 GM PACK PO PRN (01:57)
[2024-10-22] MEDS ORDERED: ACETAMINOPHEN 325 MG TAB PO PRN (01:57)
[2024-10-22] MEDS ORDERED: traMADol HCL 50 MG TABLET PO PRN (01:57)
[2024-10-22] MEDS: SODIUM CHLORIDE 0.9% 1,000 ML IV SCH (02:25)
[2024-10-22] MEDS: allopurinoL 300 MG TAB PO SCH (08:11)
[2024-10-22] MEDS: lisinopril 40 MG TAB PO SCH (08:11)
[2024-10-22] MEDS: CHOLECALCIFEROL 125 MCG (5,000 UNITS) TAB PO SCH (08:11)
[2024-10-22] MEDS: ENOXAPARIN INJ 40 MG/0.4 ML SYR SQ SCH (08:11)
[2024-10-22] MEDS: ATORVASTATIN 40 MG TAB PO SCH (08:11)
[2024-10-22] MEDS: SERTRALINE HCL 100 MG TABLET PO SCH (08:11)
[2024-10-22] MEDS: amLODIPine BESYLATE 5 MG TAB PO SCH (08:11)
[2024-10-22] MEDS: oxyCODONE HCL IR 5 MG TAB (IMMEDIATE RELEASE) PO PRN (08:15)
[2024-10-22] MEDS ORDERED: CHOLECALCIFEROL 125 MCG (5,000 UNITS) TAB PO SCH (09:00)
[2024-10-22 10:18] LABS: Basophils # (auto) 0.01 K/uL (0.00-0.20); Basophils % (auto) 0.1 %; Eosinophils # (auto) 0.02 K/uL (0.00-0.50); Eosinophils % (auto) 0.2 %; Hematocrit (blood only) 22.9 % (42.0-52.0); Hemoglobin 7.7 g/dl (14.0-18.0); Immature Granulocytes # (auto) 0.08 K/uL (0.01-0.20); Immature Granulocytes % (auto) 0.7 %; Lymphocytes # (auto) 0.75 K/uL (1.20-3.40); Lymphocytes % (auto) 6.9 %; Mean Corpuscular Hemoglobin 30.4 pg (25.0-34.0); Mean Corpuscular Hgb Conc 33.6 g/dL (32.0-36.0); Mean Corpuscular Volume 90.5 fL (80.0-100.0); Mean Platelet Volume 10.5 fL (9.4-12.4); Monocytes # (auto) 0.64 K/uL (0.11-0.59); Monocytes % (auto) 5.9 %; Neutrophils # (auto) 9.31 K/uL (1.40-6.50); Neutrophils % (auto) 86.2 %; Platelet Count 314 K/uL (130-400); RDW Coefficient of Variation 13.3 % (11.5-14.5); RDW Standard Deviation 43.9 fL (36.4-46.3); Red Blood Count 2.53 M/uL (4.70-6.10); White Blood Count 10.81 K/ul (4.8-10.8)
--- NOTE | 2024-10-22 10:19 | Electrocardiogram Report ---
Test Reason : Blood Pressure : */* mmHG Vent. Rate : 56 BPM Atrial Rate : 56 BPM P-R Int : 188 ms QRS Dur : 144 ms QT Int : 466 ms P-R-T Axes : -9 -9 90 degrees QTcB Int : 449 ms Sinus bradycardia with sinus arrhythmia Left bundle branch block Abnormal ECG When compared with ECG of 21-Jun-2016 06:35, No significant change was found Confirmed by Gray Sr ([id number]) on 10/22/2024 10:18:26 AM Referred By: REFERRED SELF Confirmed By: Gray Sr
[2024-10-22 10:33] LABS: BUN Creatinine Ratio 27.6 (10-20); Calcium 8.4 mg/dl (8.6-10.3); Creatinine Clr Calc Pharmacy 96.3 ml/min; Magnesium 1.3 mg/dl (1.7-2.4); Potassium 3.6 mmol/L (3.5-5.1)
[2024-10-22 10:54] LABS: RBC Morphology Unremarkable
[2024-10-22] MEDS: bisacodyL 5 MG TABEC PO ONE (11:28)
--- NOTE | 2024-10-22 11:34 | Hospitalist Progress Note ---
Date of Service October 22, 2024 Assessment & Plan (1) Weakness: Plan: Mr. Polo is a 79-year-old male with past medical history significant for dyslipidemia, prediabetes, ascending aortic enlargement, left bundle branch block, hypertension, irritable bowel syndrome, steatohepatitis, generalized osteoarthritis, lumbar disc disease, history of prostate cancer, spinal stenosis status post back surgery on 10/11/2024 comes because of weakness and ambulatory dysfunction and back pain. Patient states that he has been progressively weaker since his procedure. Plan for rehab #Generalized Weakness #Ambulatory dysfunction #Ongoing Back pain s/p back surgery PT OT: rehab CT lumbar spine and CT abdomen pelvis no acute findings Orthospine consult: strongly recommends rehab #Hyponatremia Sodium 129-->131 Will follow urine osmolality, serum osmolality and urine sodium levels Gentle fluids Could be contributing to weakness Follow repeat labs closely #Leukocytosis improving no signs of infection Chest x-ray okay suspect reactive iso pain #Mild elevation troponin plateaued, asymptomatic EKG okay likely demand, low suspicion for ACS #Anemia Hemoglobin 8.5 Hemoglobin was 8 on 10/15/2024 notable postop changes #Prediabetes CTM glucose in 120s #Hypertension on amlodipine, and lisinopril #Hyperlipidemia On statin #Depression On Zoloft #Ascending aortic enlargement Borderline enlarged at 3.7 cm on echo 12/2023 DVT prophylaxis Lovenox. Disposition Medical floor Full code Admission and Anticipated Discharge Date Admission Date: October 21, 2024 Subjective Reports feeling better laying flat in bed He states the pain is not as severe as it was on presentation tolerated PT Physical Exam Constitutional: WD/WN, vitals as above Respiratory: normal respiratory effort, lungs clear to auscultation Cardiovascular: RRR, no murmur, no edema Gastrointestinal (Abdomen): normal bowel sounds, soft, nontender, no hepatosplenomegaly Results & Data Results & Data Vital Signs (Past 12 Hours) Vital Signs Temp Pulse Pulse Resp BP BP BP 10/22/24 09:21 10/22/24 07:27 36.8 C 59 L 18 159/67 H 10/22/24 02:11 10/22/24 02:11 36.6 C 55 L 16 154/71 H 10/22/24 01:10 60 24 157/80 H 10/22/24 00:12 60 18 142/66 H Pulse Ox O2 Del Method 10/22/24 09:21 Room Air 10/22/24 07:27 95 Room Air 10/22/24 02:11 Room Air 10/22/24 02:11 94 Room Air 10/22/24 01:10 94 Room Air 10/22/24 00:12 94 Room Air Laboratory Results Short CBC 10/21/24 10/22/24 Range/Units 20:18 09:00 WBC 13.49 H 10.81 H (4.8-10.8) K/ul Hgb 8.5 L 7.7 L (14.0-18.0) g/dl Hct 25.1 L 22.9 L (42.0-52.0) % Plt Count 363 314 (130-400) K/uL BMP 10/21/24 10/22/24 20:18 09:00 Sodium 129 L 131 L Potassium 3.7 3.6 Chloride 93 L 96 L Carbon Dioxide 28 28 BUN 21 16 Creatinine 0.65 0.58 L Glucose 120 H 129 H Calcium 9.2 8.4 L Liver Function 10/21/24 Range/Units 20:18 Total Bilirubin 0.6 (0.2-1.0) mg/dl AST 57 H (13-39) U/L ALT 34 (7-52) U/L Alkaline Phosphatase 152 H (34-104) U/L Albumin 3.5 (3.4-5.0) gm/dl Medications Administered Home Medications Medication Instructions Recorded Confirmed Last Taken allopurinol 300 mg tablet 300 mg PO QAM 09/21/24 10/21/24 10/21/24 amlodipine 10 mg tablet (Norvasc) 10 mg PO QAM 09/21/24 10/21/24 10/21/24 atorvastatin 40 mg tablet (Lipitor) 40 mg PO QAM 09/21/24 10/21/24 10/21/24 cholecalciferol (vitamin D3) 125 250 mcg PO QAM 09/21/24 10/21/24 10/21/24 mcg (5,000 unit) tablet (Vitamin D3) lisinopril 40 mg tablet 40 mg PO QAM 09/21/24 10/21/24 10/21/24 sertraline 100 mg tablet (Zoloft) 100 mg PO QAM 09/21/24 10/21/24 10/21/24 oxycodone 5 mg tablet 5 mg PO Q6H PRN pain #30 tabs 10/12/24 10/21/24 Unknown tramadol 50 mg tablet 50 mg PO Q6H PRN pain, moderate 10/12/24 10/21/24 Unknown #30 tabs Active Medications Generic Name Dose Route Start Last Admin Trade Name Freq PRN Reason Stop Dose Admin Allopurinol 300 mg 10/22/24 09:00 10/22/24 08:11 Allopurinol 300 Mg Tab PO 11/21/24 08:59 300 mg QAM ARIANNA Administration Amlodipine Besylate 10 mg 10/22/24 09:00 10/22/24 08:11 Amlodipine Besylate 5 Mg Tab PO 11/21/24 08:59 10 mg QAM ARIANNA Administration Atorvastatin Calcium 40 mg 10/22/24 09:00 10/22/24 08:11 Atorvastatin 40 Mg Tab PO 11/21/24 08:59 40 mg QAM ARIANNA Administration Enoxaparin Sodium 40 mg 10/22/24 09:00 10/22/24 08:11 Enoxaparin Inj 40 Mg/0.4 Ml Syr SQ 11/21/24 08:59 40 mg Q24H ARIANAN Administration Sodium Chloride 1,000 mls @ 50 mls/hr 10/22/24 01:57 10/22/24 02:25 Nss IV 10/23/24 01:56 50 mls/hr .Q20H ARIANNA Administration Lisinopril 40 mg 10/22/24 09:00 10/22/24 08:11 Lisinopril 40 Mg Tab PO 11/21/24 08:59 40 mg QAM ARIANNA Administration Oxycodone HCl 5 mg 10/22/24 01:57 10/22/24 17:07 Oxycodone Hcl Ir 5 Mg Tab (Immediate Release) PO 11/05/24 01:56 5 mg Q6H PRN Administration Severe Pain (Scale 7, 8, 9,10) Sertraline HCl 100 mg 10/22/24 09:00 10/22/24 08:11 Sertraline Hcl 100 Mg Tablet PO 11/21/24 08:59 100 mg QAM ARIANNA Administration Vitamin D 125 mcg 10/22/24 09:00 10/22/24 08:11 Cholecalciferol 125 Mcg (5,000 Units) Tab PO 11/21/24 08:59 125 mcg QAM ARIANNA Administration
[2024-10-22 11:46] LABS: Immature Retic Fraction 14.2 % (2.3-15.9); Reticulated Hemoglobin 26.7 pg (28.2-36.6); Reticulocyte % 1.85 % (0.50-2.00)
[2024-10-22 13:03] LABS: Ferritin 445.2 ng/ml (8-388)
[2024-10-22 13:09] LABS: Folate (Folic Acid),Ser orPlas 7.44 ng/ml (>5.38)
--- NOTE | 2024-10-22 14:44 | Orthopedic Consultation ---
Date of Consultation October 22, 2024 Assessment & Plan (1) Weakness: Patient did present with electrolyte imbalance. He feels his strength is improving. I recommend physical therapy without the weekend and strong consideration for rehab placement upon discharge. History of Present Illness Reason for Consultation: Postoperative back and leg pain Attending Physician: Reena Srinivasan MD History of Present Illness This is a 79-year-old male well-known to me that is status post lumbar decompression fusion. He presents yesterday with worsening back pain and inability to manage his self at home. This afternoon he feels his symptoms have improved. He states he is tolerating physical therapy. Denies any numbness or tingling into his legs. Continues to complain of some right upper buttock discomfort. Allergies Allergy/AdvReac Type Severity Reaction Status Date / Time aspirin Allergy Intermediate Rash Verified 10/21/24 22:16 Home Medications Medication Instructions Recorded Confirmed Type allopurinol 300 mg tablet 300 mg PO QAM 09/21/24 10/21/24 History amlodipine 10 mg tablet (Norvasc) 10 mg PO QAM 09/21/24 10/21/24 History atorvastatin 40 mg tablet (Lipitor) 40 mg PO QAM 09/21/24 10/21/24 History cholecalciferol (vitamin D3) 125 250 mcg PO QAM 09/21/24 10/21/24 History mcg (5,000 unit) tablet (Vitamin D3) lisinopril 40 mg tablet 40 mg PO QAM 09/21/24 10/21/24 History sertraline 100 mg tablet (Zoloft) 100 mg PO QAM 09/21/24 10/21/24 History oxycodone 5 mg tablet 5 mg PO Q6H PRN pain #30 tabs 10/12/24 10/21/24 Rx tramadol 50 mg tablet 50 mg PO Q6H PRN pain, moderate 10/12/24 10/21/24 Rx #30 tabs Patient History Medical History Ascending aorta enlargement Echo 12/2023: Borderline enlarged ascending aorta, 3.7 cm History of left bundle branch block (LBBB) Dating back to at least 11/2022 per cardio records Hx of diverticulitis of colon History of prostate cancer Dx "years ago"; s/p prostatectomy History of anxiety Hx of gout Hx of hyperlipidemia History of hypertension Surgical History History of ERCP EUS/ERCP (05/10/16): Glidescope#4, ETT 7.5 at [facility] Hx of difficult intubation Per [facility] 2016 records, "anesthesia notes from 2012 prostate surgery, needed glidescope after 3 attempts" Hx of cholecystectomy History of esophagogastroduodenoscopy (EGD) Hx of colonoscopy Hx of lumbosacral spine surgery 2010, L4-L5 decompression and fusion History of prostatectomy Hx of eye surgery metal removed from eye Social History Smoking Status: Never smoker Tobacco Type: Smokeless Tobacco (Dip or Chew) Second Hand Exposure: Yes; Do You Dip or Chew Tobacco: Yes; Tobacco Cessation Education Requested by Patient: No Hx Alcohol Use: Yes Alcohol type: beer Hx Substance Use: No Preferred Language: Slovak Communication Ability: Effective Commodity Merchant Required: No Beliefs That Will Affect Care: None Current Living Situation: Spouse Current Living Situation Comment: lives with Other Information That Helps Us Care for You: No Feels Safe at Home: Yes Safety Concerns: Feels Safe At This Time Assistive Devices: Cane, Crutches and Walker Physical Exam Physical Exam: On exam is able to sit up on his own. The incision is healing well there is no erythema. There is evidence of swelling. He is quite thin. He is neurologically intact testing lower extremities. Results & Data Vital Signs (Past 12 Hours) Vital Signs Temp Pulse Resp BP Pulse Ox O2 Del Method 10/22/24 09:21 Room Air 10/22/24 07:27 36.8 C 59 L 18 159/67 H 95 Room Air
[2024-10-22 23:18] LABS: Appearance Urine Clear (Clear); Bacteria Urine Automated None Seen (None Seen); Bilirubin Urine Negative (Negative); Blood Urine Negative (Negative); Color Urine Dark Yellow; Epithelial Cell Urine Auto 0-2 /hpf (0-2); Glucose Urine UA Negative (Negative); Ketones Urine Negative (Negative); Leukocyte Esterase Urine Negative (Negative); Nitrite Urine Negative (Negative); Protein Urine 1+ (Negative); RBC Urine Automated 0-2 /hpf (0-2); Specific Gravity Urine 1.029 (1.000-1.030); Urobilinogen Urine Positive (Negative); WBC Urine Automated 0-5 /hpf (0-5)
[2024-10-23 07:43] LABS: Mean Corpuscular Hemoglobin 30.4 pg (25.0-34.0); Mean Corpuscular Hgb Conc 33.3 g/dL (32.0-36.0); Mean Corpuscular Volume 91.3 fL (80.0-100.0); Mean Platelet Volume 10.4 fL (9.4-12.4); Platelet Count 338 K/uL (130-400); RDW Standard Deviation 43.4 fL (36.4-46.3); Red Blood Count 2.63 M/uL (4.70-6.10); White Blood Count 12.58 K/ul (4.8-10.8)
[2024-10-23 08:11] LABS: BUN Creatinine Ratio 28.8 (10-20); Calcium 8.3 mg/dl (8.6-10.3); Creatinine Clr Calc Pharmacy 107.4 ml/min; Magnesium 1.3 mg/dl (1.7-2.4); Phosphorus 3.7 mg/dl (2.5-4.9); Potassium 3.5 mmol/L (3.5-5.1)
[2024-10-23] MEDS: MAGNESIUM SULFATE / D5W 1 GM/100 ML BAG IV SCH (09:57)
[2024-10-23] MEDS: oxyCODONE HCL IR 5 MG TAB (IMMEDIATE RELEASE) PO STA (09:57)
[2024-10-23] MEDS: POTASSIUM CHLORIDE PWD 20 MEQ PACK PO SCH (09:58)
--- NOTE | 2024-10-23 10:04 | Orthopedic Progress Note ---
Date of Service October 23, 2024 Assessment & Plan (1) Acute hyponatremia: Plan: At this point I would like to obtain an MRI lumbar spine to rule out hematoma seroma contributing to his leg pain. Continue to watch his sodium. His hyponatremia could clearly be contributing to his weakness. Admission and Anticipated Discharge Date Admission Date: October 21, 2024 Subjective Patient continues to struggle with back pain and bilateral leg pain and weakness. Physical Exam Physical Exam: Patient is able to stand has reasonable strength testing but is clearly limited. Incision is healing no erythema but there is swelling appreciated. Results & Data Vital Signs (Past 12 Hours) Vital Signs Temp Pulse Resp BP Pulse Ox O2 Del Method 10/23/24 07:46 36.8 C 63 18 165/67 H 91 Room Air
--- NOTE | 2024-10-23 11:20 | Hospitalist Progress Note ---
Date of Service October 23, 2024 Assessment & Plan (1) Weakness: Plan: Mr. Polo is a 79-year-old male with past medical history significant for dyslipidemia, prediabetes, ascending aortic enlargement, left bundle branch block, hypertension, irritable bowel syndrome, steatohepatitis, generalized osteoarthritis, lumbar disc disease, history of prostate cancer, spinal stenosis status post back surgery on 10/11/2024 comes because of weakness and ambulatory dysfunction and back pain. Patient states that he has been progressively weaker since his procedure. Plan for rehab contingent on results of MRI #Generalized Weakness #Ambulatory dysfunction #Ongoing Back pain s/p back surgery PT OT: rehab CT lumbar spine and CT abdomen pelvis no acute findings Orthospine consult: strongly recommends rehab, plan for MRI to rule out seroma #Hyponatremia, suspect SIADH 2/2 pain Sodium 129-->131-->129 Will follow urine osmolality, serum osmolality and urine sodium levels d/c fluids, low serum osmo with urine osmo >100 FR 1200, start urea 15g daily Trend BMP q 12 tsh and cortisol added Nephrology consulted #Leukocytosis improving no signs of infection Chest x-ray okay suspect reactive iso pain MRI to assess for seroma #Mild elevation troponin plateaued, asymptomatic EKG okay likely demand, low suspicion for ACS #Anemia, likely inflammatory, 2/2 post op losses Hemoglobin 8.5, Fe 10, TIBC 204, Transferrin sat 5%, ferritin 445.2 Hemoglobin was 8 on 10/15/2024 notable postop changes #Prediabetes CTM glucose in 120s #Hypertension on amlodipine, and lisinopril #Hyperlipidemia On statin #Depression On Zoloft #Ascending aortic enlargement Borderline enlarged at 3.7 cm on echo 12/2023 DVT prophylaxis Lovenox. Disposition Medical floor Full code Admission and Anticipated Discharge Date Admission Date: October 21, 2024 Subjective Reports ongoing back pain and concern with leg stability/pain when ambulating Denies any other acute concerns at this time Physical Exam Constitutional: WD/WN, vitals as above Respiratory: normal respiratory effort, lungs clear to auscultation Cardiovascular: RRR, no murmur, no edema Gastrointestinal (Abdomen): normal bowel sounds, soft, nontender, no hepatosplenomegaly Results & Data Results & Data Vital Signs (Past 12 Hours) Vital Signs Temp Pulse Resp BP Pulse Ox O2 Del Method 10/23/24 07:46 36.8 C 63 18 165/67 H 91 Room Air Laboratory Results Short CBC 10/23/24 Range/Units 07:21 WBC 12.58 H (4.8-10.8) K/ul Hgb 8.0 L (14.0-18.0) g/dl Hct 24.0 L (42.0-52.0) % Plt Count 338 (130-400) K/uL BMP 10/23/24 07:21 Sodium 129 L Potassium 3.5 Chloride 95 L Carbon Dioxide 27 BUN 15 Creatinine 0.52 L Glucose 107 H Calcium 8.3 L Urine 10/22/24 Range/Units 22:43 Urine Color Dark Yellow Urine Appearance Clear (Clear) Urine pH 6.0 (4.5-7.5) Ur Specific [place] 1.029 (1.000-1.030) Urine Protein 1+ H (Negative) Urine Glucose (UA) Negative (Negative) Medications Administered Home Medications Medication Instructions Recorded Confirmed Last Taken allopurinol 300 mg tablet 300 mg PO QAM 09/21/24 10/21/24 10/21/24 amlodipine 10 mg tablet (Norvasc) 10 mg PO QAM 09/21/24 10/21/24 10/21/24 atorvastatin 40 mg tablet (Lipitor) 40 mg PO QAM 09/21/24 10/21/24 10/21/24 cholecalciferol (vitamin D3) 125 250 mcg PO QAM 09/21/24 10/21/24 10/21/24 mcg (5,000 unit) tablet (Vitamin D3) lisinopril 40 mg tablet 40 mg PO QAM 09/21/24 10/21/24 10/21/24 sertraline 100 mg tablet (Zoloft) 100 mg PO QAM 09/21/24 10/21/24 10/21/24 oxycodone 5 mg tablet 5 mg PO Q6H PRN pain #30 tabs 10/12/24 10/21/24 Unknown tramadol 50 mg tablet 50 mg PO Q6H PRN pain, moderate 10/12/24 10/21/24 Unknown #30 tabs Active Medications Generic Name Dose Route Start Last Admin Trade Name Freq PRN Reason Stop Dose Admin Allopurinol 300 mg 10/22/24 09:00 10/23/24 09:53 Allopurinol 300 Mg Tab PO 11/21/24 08:59 300 mg QAM ARIANNA Administration Amlodipine Besylate 10 mg 10/22/24 09:00 10/23/24 09:53 Amlodipine Besylate 5 Mg Tab PO 11/21/24 08:59 10 mg QAM ARIANNA Administration Atorvastatin Calcium 40 mg 10/22/24 09:00 10/23/24 09:53 Atorvastatin 40 Mg Tab PO 11/21/24 08:59 40 mg QAM ARIANNA Administration Enoxaparin Sodium 40 mg 10/22/24 09:00 10/23/24 09:54 Enoxaparin Inj 40 Mg/0.4 Ml Syr SQ 11/21/24 08:59 Not Given Q24H ARIANNA Magnesium Sulfate/Dextrose 1 gm in 100 mls @ 50 mls/hr 10/23/24 09:15 10/23/24 09:57 Magnesium Sulfate / D5w IV 10/23/24 17:14 50 mls/hr Q2H ARIANNA Administration Lisinopril 40 mg 10/22/24 09:00 10/23/24 09:54 Lisinopril 40 Mg Tab PO 11/21/24 08:59 40 mg QAM ARIANNA Administration Oxycodone HCl 5 mg 10/22/24 01:57 10/23/24 02:13 Oxycodone Hcl Ir 5 Mg Tab (Immediate Release) PO 11/05/24 01:56 5 mg Q6H PRN Administration Severe Pain (Scale 7, 8, 9,10) Potassium Chloride 40 meq 10/23/24 09:15 10/23/24 09:58 Potassium Chloride Pwd 20 Meq Pack PO 11/22/24 09:14 40 meq QAM ARIANNA Administration Sertraline HCl 100 mg 10/22/24 09:00 10/23/24 09:54 Sertraline Hcl 100 Mg Tablet PO 11/21/24 08:59 100 mg QAM ARIANNA Administration Vitamin D 125 mcg 10/22/24 09:00 10/23/24 09:53 Cholecalciferol 125 Mcg (5,000 Units) Tab PO 11/21/24 08:59 125 mcg QAM ARIANNA Administration
[2024-10-23] MEDS: UREA (UREA-NA) 15 GM PACK PO SCH ×2 (11:46→22:11)
[2024-10-23 12:16] LABS: Thyroid Stimulating Hormone 0.699 uIu/ml (0.300-4.500); Uric Acid 2.1 mg/dl (2.6-7.2)
--- NOTE | 2024-10-23 14:29 | XRay Report ---
Clinical History: MRI clearance Technique: 4 views of the orbits are submitted for review. Findings: No definite sinus opacification is seen. No fracture is evident. No focal osseous lesion is identified. There are no radiopaque foreign bodies. Impression: No visible foreign body. No contraindication to MRI is seen Electronically signed by Glenn Chapman 10-23-2024 2:29 PM
--- NOTE | 2024-10-23 17:15 | Magnetic Resonance Report ---
MRI LUMBAR SPINE WITHOUT CONTRAST TECHNIQUE: An MRI examination of the lumbar spine was performed. The examination consists of sagittal T1-weighted, inversion recovery and T2 weighted images as well as axial T1-weighted, T2-weighted and gradient echo images. INDICATION: Back pain COMPARISON: Lumbar spine CT October 21, 2024. FINDINGS: Redemonstrated postoperative changes of recent L2-S1 posterior instrumented fusion with laminectomies. There is extensive metal artifact arising from the hardware which precludes adequate evaluation of the spine and the paraspinal elements. Within this limitation, there is a fluid in the laminectomy bed which extends approximately 12.0 cm in the craniocaudal dimension. In addition there is a more superficial fluid just deep to the skin in this area which measures 15.5 cm in craniocaudal length. These may represent postsurgical changes given recent surgery such as seroma or hematomas. In this limited examination, there appears to be a broad-based disc bulge at L1-2 immediately superiorly to the surgical levels with bilateral facet arthropathy and thickening of the ligamentum flavum seemingly resulting in high-grade spinal canal and neuroforaminal narrowing. IMPRESSION: Redemonstrated postsurgical changes of recent L2-S1 posterior instrumented fusion with laminectomies. Extensive metal artifact from the hardware precludes adequate evaluation of the spine and the paraspinal elements at these levels. Within this limitation: Fluid collections as described above in the laminectomy bed and more superficially just deep to the skin as above. This may represent postsurgical fluid collection such as seromas or hematomas. Superimposed infection difficult to exclude. Immediately above the surgical level at L1-2, there is a broad-based disc bulge with bilateral facet arthropathy and thickening of the ligamentum flavum apparently resulting in high-grade tricompartmental spinal canal stenosis and neural foraminal narrowing. Electronically signed by Jorge Dixon 10-23-2024 5:15 PM
[2024-10-23 17:34] LABS: BUN Creatinine Ratio 38.9 (10-20); Calcium 8.6 mg/dl (8.6-10.3); Creatinine Clr Calc Pharmacy 103.4 ml/min
[2024-10-24 04:30] LABS: BUN Creatinine Ratio 30.9 (10-20); Calcium 8.7 mg/dl (8.6-10.3); Creatinine Clr Calc Pharmacy 101.5 ml/min; Potassium 4.4 mmol/L (3.5-5.1)
[2024-10-24 08:22] LABS: Basophils # (auto) 0.01 K/uL (0.00-0.20); Basophils % (auto) 0.1 %; Hematocrit (blood only) 25.7 % (42.0-52.0); Hemoglobin 8.6 g/dl (14.0-18.0); Immature Granulocytes # (auto) 0.08 K/uL (0.01-0.20); Immature Granulocytes % (auto) 0.5 %; Lymphocytes # (auto) 0.64 K/uL (1.20-3.40); Lymphocytes % (auto) 4.2 %; Mean Corpuscular Hgb Conc 33.5 g/dL (32.0-36.0); Mean Corpuscular Volume 89.5 fL (80.0-100.0); Monocytes # (auto) 1.05 K/uL (0.11-0.59); Monocytes % (auto) 6.9 %; Neutrophils # (auto) 13.43 K/uL (1.40-6.50); Neutrophils % (auto) 88.3 %; Platelet Count 393 K/uL (130-400); RDW Coefficient of Variation 13.5 % (11.5-14.5); RDW Standard Deviation 44.3 fL (36.4-46.3); Red Blood Count 2.87 M/uL (4.70-6.10); White Blood Count 15.21 K/ul (4.8-10.8)
--- NOTE | 2024-10-24 08:46 | Orthopedic Progress Note ---
Date of Service October 24, 2024 Assessment & Plan (1) Weakness: Plan: I have reviewed his lumbar MRI from yesterday and discussed this with the patient. It shows a large postoperative fluid collection, most likely seroma, but causing significant canal compromise. This could be contributing to his lower extremity weakness and pain. Will make him n.p.o. after midnight in anticipation of I&D tomorrow. Admission and Anticipated Discharge Date Admission Date: October 21, 2024 Gary Montemayor continues to struggle with postoperative weakness and bilateral lower extremity pain. Denies any bowel or urinary dysfunction. Review of Systems Review of Systems: All systems reviewed & are unremarkable except as noted in HPI & below Physical Exam Physical Exam: He sitting in bed eating breakfast no acute distress Strength unchanged bilateral lower extremities Results & Data Vital Signs (Past 12 Hours) Vital Signs Temp Pulse Resp BP Pulse Ox O2 Del Method 10/24/24 07:23 37.2 C 73 20 163/84 H 95 Room Air Diagnostic Findings [place], [place] [phone] Magnetic Resonance Report Patient: BERHANE KHAN Admit Date: 10/21/24 MR#: [id number] Address1: [address] [place] [address] Acct ID:[id number] Address2: Date: 1945 [facility] Zip: [place] [address] Age: 79 Location: 3N Sex: M Room/Bed: N382-2 Att Phy: Reena Srinivasan MD Diagnosis: WEAKNESS, AMBULATORY DYSFUNCTION Alicia Phy: Arely Griffin DO Service Date: 10/23/24 Fam Phy: Interpreting Phy: Jorge Dixon MDAit Phy: Sanjay Morales MD Ordering Phy: Sarthak Lira D.O. cc: ~ MRI LUMBAR SPINE WITHOUT CONTRAST TECHNIQUE: An MRI examination of the lumbar spine was performed. The examination consists of sagittal T1-weighted, inversion recovery and T2 weighted images as well as axial T1-weighted, T2-weighted and gradient echo images. INDICATION: Back pain COMPARISON: Lumbar spine CT October 21, 2024. FINDINGS: Redemonstrated postoperative changes of recent L2-S1 posterior instrumented fusion with laminectomies. There is extensive metal artifact arising from the hardware which precludes adequate evaluation of the spine and the paraspinal elements. Within this limitation, there is a fluid in the laminectomy bed which extends approximately 12.0 cm in the craniocaudal dimension. In addition there is a more superficial fluid just deep to the skin in this area which measures 15.5 cm in craniocaudal length. These may represent postsurgical changes given recent surgery such as seroma or hematomas. In this limited examination, there appears to be a broad-based disc bulge at L1-2 immediately superiorly to the surgical levels with bilateral facet arthropathy and thickening of the ligamentum flavum seemingly resulting in high-grade spinal canal and neuroforaminal narrowing. IMPRESSION: Redemonstrated postsurgical changes of recent L2-S1 posterior instrumented fusion with laminectomies. Extensive metal artifact from the hardware precludes adequate evaluation of the spine and the paraspinal elements at these levels. Within this limitation: Fluid collections as described above in the laminectomy bed and more superficially just deep to the skin as above. This may represent postsurgical fluid collection such as seromas or hematomas. Superimposed infection difficult to exclude. Immediately above the surgical level at L1-2, there is a broad-based disc bulge with bilateral facet arthropathy and thickening of the ligamentum flavum apparently resulting in high-grade tricompartmental spinal canal stenosis and neural foraminal narrowing. Electronically signed by Jorge Dixon 10-23-2024 5:15 PM Dictated: 10/23/24 1541 Transcribed:
--- NOTE | 2024-10-24 13:24 | Hospitalist Progress Note ---
Date of Service October 24, 2024 Assessment & Plan (1) Weakness: Plan: Mr. Polo is a 79-year-old male with past medical history significant for dyslipidemia, prediabetes, ascending aortic enlargement, left bundle branch block, hypertension, irritable bowel syndrome, steatohepatitis, generalized osteoarthritis, lumbar disc disease, history of prostate cancer, spinal stenosis status post back surgery on 10/11/2024 comes because of weakness and ambulatory dysfunction and back pain. Patient states that he has been progressively weaker since his procedure. Sodium is 130 this am, again suspect likely SIADH iso seroma. MRI with the seroma and plans for I&D tomorrow. Leukocytosis noted, however, suspect secondary to this inflammatory process and given no systemic signs like fevers, tachycardia would like to hold on abx to afford opportunity to culture fluid tomorrow; however, if any clinical changes will opt for abx prior. #Generalized Weakness #Ambulatory dysfunction #Ongoing Back pain s/p back surgery PT OT: rehab CT lumbar spine and CT abdomen pelvis no acute findings Orthospine consult: MRI with seroma -NPO midnight for I&D tomorrow #Hyponatremia, suspect SIADH 2/2 pain Sodium 129-->131-->129 Will follow urine osmolality, serum osmolality and urine sodium levels d/c fluids, low serum osmo with urine osmo >100 FR 1200, start urea 15g daily Trend BMP q 12 tsh and cortisol wnl Nephrology consulted #Leukocytosis improving no signs of infection at this time, suspect 2/2 seroma Chest x-ray okay suspect reactive iso pain and seroma Will hold abx for now to opt for culture in OR given no systemic signs however, if fever, tachycardia or uptrending WBC will start empirics with MRSA coverage #Mild elevation troponin plateaued, asymptomatic EKG okay likely demand, low suspicion for ACS #Anemia, likely inflammatory, 2/2 post op losses Hemoglobin 8.5, Fe 10, TIBC 204, Transferrin sat 5%, ferritin 445.2 Hemoglobin was 8 on 10/15/2024 notable postop changes #Prediabetes CTM glucose in 120s #Hypertension on amlodipine, and lisinopril #Hyperlipidemia On statin #Depression On Zoloft #Ascending aortic enlargement Borderline enlarged at 3.7 cm on echo 12/2023 DVT prophylaxis Lovenox held for procedure, SCDs. Disposition Medical floor Full code Admission and Anticipated Discharge Date Admission Date: October 21, 2024 Subjective Reports continued pain ongoing and discomfort, denies fevers chills night sweats or other issues at bedside reports intermittent visual hallucinations Physical Exam Constitutional: WD/WN, vitals as above Respiratory: normal respiratory effort, lungs clear to auscultation Cardiovascular: RRR, no murmur, no edema Gastrointestinal (Abdomen): normal bowel sounds, soft, nontender, no hepatosplenomegaly Results & Data Results & Data Vital Signs (Past 12 Hours) Vital Signs Temp Pulse Resp BP Pulse Ox O2 Del Method 10/24/24 09:30 Room Air 10/24/24 07:23 37.2 C 73 20 163/84 H 95 Room Air Laboratory Results Short CBC 10/24/24 Range/Units 08:08 WBC 15.21 H (4.8-10.8) K/ul Hgb 8.6 L (14.0-18.0) g/dl Hct 25.7 L (42.0-52.0) % Plt Count 393 (130-400) K/uL BMP 10/23/24 10/24/24 16:53 03:54 Sodium 129 L 130 L Potassium 4.0 4.4 Chloride 98 96 L Carbon Dioxide 25 28 BUN 21 17 Creatinine 0.54 L 0.55 L Glucose 120 H 124 H Calcium 8.6 8.7 Medications Administered Home Medications Medication Instructions Recorded Confirmed Last Taken allopurinol 300 mg tablet 300 mg PO QAM 09/21/24 10/21/24 10/21/24 amlodipine 10 mg tablet (Norvasc) 10 mg PO QAM 09/21/24 10/21/24 10/21/24 atorvastatin 40 mg tablet (Lipitor) 40 mg PO QAM 09/21/24 10/21/24 10/21/24 cholecalciferol (vitamin D3) 125 250 mcg PO QAM 09/21/24 10/21/24 10/21/24 mcg (5,000 unit) tablet (Vitamin D3) lisinopril 40 mg tablet 40 mg PO QAM 09/21/24 10/21/24 10/21/24 sertraline 100 mg tablet (Zoloft) 100 mg PO QAM 09/21/24 10/21/24 10/21/24 oxycodone 5 mg tablet 5 mg PO Q6H PRN pain #30 tabs 10/12/24 10/21/24 Unknown tramadol 50 mg tablet 50 mg PO Q6H PRN pain, moderate 10/12/24 10/21/24 Unknown #30 tabs Active Medications Generic Name Dose Route Start Last Admin Trade Name Freq PRN Reason Stop Dose Admin Allopurinol 300 mg 10/22/24 09:00 10/24/24 09:15 Allopurinol 300 Mg Tab PO 11/21/24 08:59 300 mg QAM ARIANNA Administration Amlodipine Besylate 10 mg 10/22/24 09:00 10/24/24 09:15 Amlodipine Besylate 5 Mg Tab PO 11/21/24 08:59 10 mg QAM ARIANNA Administration Atorvastatin Calcium 40 mg 10/22/24 09:00 10/24/24 09:15 Atorvastatin 40 Mg Tab PO 11/21/24 08:59 40 mg QAM ARIANNA Administration Enoxaparin Sodium 40 mg 10/22/24 09:00 10/24/24 09:16 Enoxaparin Inj 40 Mg/0.4 Ml Syr SQ 11/21/24 08:59 40 mg Q24H ARIANNA Administration Lisinopril 40 mg 10/22/24 09:00 10/24/24 09:15 Lisinopril 40 Mg Tab PO 11/21/24 08:59 40 mg QAM ARIANNA Administration Oxycodone HCl 5 mg 10/22/24 01:57 10/23/24 02:13 Oxycodone Hcl Ir 5 Mg Tab (Immediate Release) PO 11/05/24 01:56 5 mg Q6H PRN Administration Severe Pain (Scale 7, 8, 9,10) Potassium Chloride 40 meq 10/23/24 09:15 10/24/24 09:15 Potassium Chloride Pwd 20 Meq Pack PO 11/22/24 09:14 40 meq QAM ARIANNA Administration Urea 15 gm 10/23/24 21:00 10/24/24 09:15 Urea (Urea-Na) 15 Gm Pack PO 11/22/24 20:59 15 gm BID ARIANNA Administration Vitamin D 125 mcg 10/22/24 09:00 10/24/24 09:15 Cholecalciferol 125 Mcg (5,000 Units) Tab PO 11/21/24 08:59 125 mcg QAM ARIANNA Administration
--- NOTE | 2024-10-24 13:33 | Nephrology Consultation ---
Date of Consultation October 24, 2024 Assessment & Plan (1) Acute hyponatremia: This is due to syndrome of inappropriate ADH. Main trigger is back pain and sertraline. Sodium is 130 today. Urine osmolality 742 and urine sodium of 31. - Will continue urea 15 g twice daily - high-protein diet - fluid limit 1.2 L daily - daily BMP - will hold sertraline until outpatient follow-up with PCP (2) Hypertension: blood pressure is above target. Continue amlodipine and lisinopril. Will add Coreg 3.125 mg twice daily. (3) Back pain: Continue pain control per primary team. Patient planned for I and D tomorrow History of Present Illness Reason for Consultation: hyponatremia Requesting Physician: Reena Srinivasan MD Attending Physician: Reena Srinivasan MD History of Present Illness This is a 79-year-old male being seen for hyponatremia. Past medical history significant for dyslipidemia, ascending aortic enlargement, left bundle branch block, hypertension, irritable bowel syndrome, steatohepatitis, generalized osteoarthritis, lumbar disc disease, history of prostate cancer, spinal stenosis status post back surgery on 10/11/2024. He was admitted with weakness and ambulatory dysfunction and back pain. admission sodium was 129. serum osmolality 272, urine osmolality 742 and urine sodium of 31. main complaint today is hip pain. No shortness of breath. No vomiting or diarrhea. MRI of the back showed seroma and plans for I&D tomorrow. Allergies Allergy/AdvReac Type Severity Reaction Status Date / Time aspirin Allergy Intermediate Rash Verified 10/21/24 22:16 Home Medications Medication Instructions Recorded Confirmed Type allopurinol 300 mg tablet 300 mg PO QAM 09/21/24 10/21/24 History amlodipine 10 mg tablet (Norvasc) 10 mg PO QAM 09/21/24 10/21/24 History atorvastatin 40 mg tablet (Lipitor) 40 mg PO QAM 09/21/24 10/21/24 History cholecalciferol (vitamin D3) 125 250 mcg PO QAM 09/21/24 10/21/24 History mcg (5,000 unit) tablet (Vitamin D3) lisinopril 40 mg tablet 40 mg PO QAM 09/21/24 10/21/24 History sertraline 100 mg tablet (Zoloft) 100 mg PO QAM 09/21/24 10/21/24 History oxycodone 5 mg tablet 5 mg PO Q6H PRN pain #30 tabs 10/12/24 10/21/24 Rx tramadol 50 mg tablet 50 mg PO Q6H PRN pain, moderate 10/12/24 10/21/24 Rx #30 tabs Patient History Medical History Ascending aorta enlargement Echo 12/2023: Borderline enlarged ascending aorta, 3.7 cm History of left bundle branch block (LBBB) Dating back to at least 11/2022 per cardio records Hx of diverticulitis of colon History of prostate cancer Dx "years ago"; s/p prostatectomy History of anxiety Hx of gout Hx of hyperlipidemia History of hypertension Surgical History History of ERCP EUS/ERCP (05/10/16): Glidescope#4, ETT 7.5 at [facility] Hx of difficult intubation Per [facility] 2016 records, "anesthesia notes from 2013 prostate surgery, needed glidescope after 3 attempts" Hx of cholecystectomy History of esophagogastroduodenoscopy (EGD) Hx of colonoscopy Hx of lumbosacral spine surgery 2009, L4-L5 decompression and fusion History of prostatectomy Hx of eye surgery metal removed from eye Social History Smoking Status: Never smoker Tobacco Type: Smokeless Tobacco (Dip or Chew) Second Hand Exposure: Yes; Do You Dip or Chew Tobacco: Yes; Tobacco Cessation Education Requested by Patient: No Hx Alcohol Use: Yes Alcohol type: beer Hx Substance Use: No Preferred Language: Maltese Communication Ability: Effective 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 Beliefs That Will Affect Care: None Current Living Situation: Spouse Current Living Situation Comment: lives with Other Information That Helps Us Care for You: No Feels Safe at Home: Yes Safety Concerns: Feels Safe At This Time Assistive Devices: Cane, Crutches and Walker Review of Systems 2 Review of Systems: All other systems were reviewed and negative except as noted in HPI Physical Exam 2 Physical Exam: General exam: Appears comfortable, no acute distress HEENT: Pupils are equal and reactive to light Neck: No JVD, neck is supple trachea is midline Respiratory system: Clear breath sounds bilaterally. Gastrointestinal: Abdomen is soft, non distended, non tender, bowel sounds are present CVS: Regular rate and rhythm. No murmurs, rubs or gallops Musculoskeletal: No joint or muscle tenderness Extremities: Non tender, no edema, peripheral pulses are present Neuro: Oriented, no tremors, no focal neurological deficits Skin: No rashes Results & Data Vital Signs (Past 12 Hours) Vital Signs Temp Pulse Resp BP Pulse Ox O2 Del Method 10/24/24 09:30 Room Air 10/24/24 07:23 37.2 C 73 20 163/84 H 95 Room Air Laboratory Results 10/24/24 03:54 10/24/24 08:08 WBC 15.21 H RBC 2.87 L MCV 89.5 MCH 30.0 MCHC 33.5 RDW Std Deviation 44.3 RDW Coeff of [place] 13.5 Plt Count 393 MPV 10.0
[2024-10-24 16:05] LABS: BUN Creatinine Ratio 42.4 (10-20); Calcium 8.6 mg/dl (8.6-10.3); Creatinine Clr Calc Pharmacy 94.6 ml/min; Potassium 3.9 mmol/L (3.5-5.1)
[2024-10-24] MEDS: carvediloL 3.125 MG TAB PO SCH (17:26)
[2024-10-25 04:37] LABS: Hematocrit (blood only) 25.9 % (42.0-52.0); Hemoglobin 8.4 g/dl (14.0-18.0); Mean Corpuscular Hemoglobin 29.3 pg (25.0-34.0); Mean Corpuscular Hgb Conc 32.4 g/dL (32.0-36.0); Mean Corpuscular Volume 90.2 fL (80.0-100.0); Mean Platelet Volume 9.8 fL (9.4-12.4); Platelet Count 394 K/uL (130-400); RDW Coefficient of Variation 13.5 % (11.5-14.5); RDW Standard Deviation 44.5 fL (36.4-46.3); Red Blood Count 2.87 M/uL (4.70-6.10); White Blood Count 12.14 K/ul (4.8-10.8)
[2024-10-25 04:52] LABS: BUN Creatinine Ratio 43.6 (10-20); Calcium 8.7 mg/dl (8.6-10.3); Creatinine Clr Calc Pharmacy 101.5 ml/min; Magnesium 1.4 mg/dl (1.7-2.4); Phosphorus 5.3 mg/dl (2.5-4.9); Potassium 3.7 mmol/L (3.5-5.1)
[2024-10-25] MEDS ORDERED: ROCURONIUM BROMIDE 10 MG/ML 5 ML VIAL IV ONE (06:57)
[2024-10-25] MEDS ORDERED: PROPOFOL IV EMULSION 10 MG/ML 20 ML VIAL IV ONE (06:57)
[2024-10-25] MEDS ORDERED: LIDOCAINE 2% 2 ML VIAL/AMP(20MG/ML) INFIL ONE (06:57)
[2024-10-25] MEDS ORDERED: fentaNYL citrate PF 100 MCG/2 ML VIAL ONE (06:57)
[2024-10-25] MEDS ORDERED: ONDANSETRON INJ 2 MG/ML 2 ML VIAL ONE (06:57)
[2024-10-25] MEDS ORDERED: DEXAMETHASONE SOD INJ 4 MG/ML VIAL ONE (06:57)
[2024-10-25] MEDS: MAGNESIUM SULFATE / D5W 1 GM/100 ML BAG IV SCH (07:30)
--- NOTE | 2024-10-25 10:03 | Hospitalist Progress Note ---
Date of Service October 25, 2024 Assessment & Plan (1) Weakness: Plan: Mr. Polo is a 79-year-old male with past medical history significant for dyslipidemia, prediabetes, ascending aortic enlargement, left bundle branch block, hypertension, irritable bowel syndrome, steatohepatitis, generalized osteoarthritis, lumbar disc disease, history of prostate cancer, spinal stenosis status post back surgery on 10/11/2024 comes because of weakness and ambulatory dysfunction and back pain. Patient states that he has been progressively weaker since his procedure. 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 Nephrology evaluated: on urea bid at this time. MRI with the seroma and plans for I&D today. Leukocytosis noted, however, suspect secondary to this inflammatory process and given no systemic signs like fevers, tachycardia would like to hold on abx to afford opportunity to culture fluid tomorrow; however, if any clinical changes will opt for abx prior. Remains hemodynamically stable at this time. Will monitor and manage likely delirium to be anticipated post opertiavely #Acute encephalopathy, suspect delirium noted last admission, fluctuating, intermittent visual hallucinations Will avoid benzos and antipsychotics as able and opt for reorientation Suspect multifactorial iso pain/hospitalization/prior episodes Will monitor for concerns for infection #Generalized Weakness #Ambulatory dysfunction #Ongoing Back pain s/p back surgery PT OT: rehab CT lumbar spine and CT abdomen pelvis no acute findings Orthospine consult: MRI with seroma -I&D this morning anticipated Plan to follow HH, PT/OT again postoperatively when able, analgesia prn #Hyponatremia, suspect SIADH 2/2 pain Sodium 129-->131-->129 Will follow urine osmolality, serum osmolality and urine sodium levels d/c fluids, low serum osmo with urine osmo >100 FR 1200, Trend BMP qd tsh and cortisol wnl Nephrology consulted, reviewed recommendations:urea bid for now #Leukocytosis improving no signs of infection at this time, suspect 2/2 seroma Chest x-ray okay suspect reactive iso pain and seroma Will continue to hold abx for now to opt for culture in OR given no systemic signs however, if fever, tachycardia or uptrending WBC will start empirics with MRSA coverage #Mild elevation troponin plateaued, asymptomatic EKG okay likely demand, low suspicion for ACS #Anemia, likely inflammatory, 2/2 post op losses Hemoglobin 8.5, Fe 10, TIBC 204, Transferrin sat 5%, ferritin 445.2 Hemoglobin was 8 on 10/15/2024 notable postop changes #Prediabetes CTM glucose in 120s #Hypertension on amlodipine, and lisinopril #Hyperlipidemia On statin #Depression On Zoloft #Ascending aortic enlargement Borderline enlarged at 3.7 cm on echo 12/2023 DVT prophylaxis Lovenox held for procedure, SCDs. Disposition Medical floor Full code Admission and Anticipated Discharge Date Admission Date: October 21, 2024 Subjective Some intermittent confusion noted by staff Patient is aware he is in hospital and about to have a procedure for his back, but unable to state date/time of day/year Reports pain is stable, but easily provoked with movement/small adjustements Physical Exam Constitutional: WD/WN, vitals as above (seemingly uncomfortable but no distress noted ) Respiratory: normal respiratory effort, lungs clear to auscultation Cardiovascular: RRR, no murmur, no edema Results & Data Results & Data Vital Signs (Past 12 Hours) Vital Signs Temp Pulse Resp BP Pulse Ox O2 Del Method 10/25/24 07:23 36.6 C 62 12 178/77 H 95 Room Air Laboratory Results Short CBC 10/25/24 Range/Units 04:14 WBC 12.14 H (4.8-10.8) K/ul Hgb 8.4 L (14.0-18.0) g/dl Hct 25.9 L (42.0-52.0) % Plt Count 394 (130-400) K/uL BMP 10/24/24 10/25/24 15:34 04:14 Sodium 130 L 130 L Potassium 3.9 3.7 Chloride 96 L 95 L Carbon Dioxide 26 27 BUN 25 H 24 H Creatinine 0.59 L 0.55 L Glucose 116 H 108 H Calcium 8.6 8.7 Medications Administered Home Medications Medication Instructions Recorded Confirmed Last Taken allopurinol 300 mg tablet 300 mg PO QAM 09/21/24 10/21/24 10/21/24 amlodipine 10 mg tablet (Norvasc) 10 mg PO QAM 09/21/24 10/21/24 10/21/24 atorvastatin 40 mg tablet (Lipitor) 40 mg PO QAM 09/21/24 10/21/24 10/21/24 cholecalciferol (vitamin D3) 125 250 mcg PO QAM 09/21/24 10/21/24 10/21/24 mcg (5,000 unit) tablet (Vitamin D3) lisinopril 40 mg tablet 40 mg PO QAM 09/21/24 10/21/24 10/21/24 sertraline 100 mg tablet (Zoloft) 100 mg PO QAM 09/21/24 10/21/24 10/21/24 oxycodone 5 mg tablet 5 mg PO Q6H PRN pain #30 tabs 10/12/24 10/21/24 Unknown tramadol 50 mg tablet 50 mg PO Q6H PRN pain, moderate 10/12/24 10/21/24 Unknown #30 tabs Active Medications Generic Name Dose Route Start Last Admin Trade Name Freq PRN Reason Stop Dose Admin Allopurinol 300 mg 10/22/24 09:00 10/25/24 07:32 Allopurinol 300 Mg Tab PO 11/21/24 08:59 300 mg QAM ARIANNA Administration Amlodipine Besylate 10 mg 10/22/24 09:00 10/25/24 07:31 Amlodipine Besylate 5 Mg Tab PO 11/21/24 08:59 10 mg QAM ARIANNA Administration Atorvastatin Calcium 40 mg 10/22/24 09:00 10/25/24 07:31 Atorvastatin 40 Mg Tab PO 11/21/24 08:59 40 mg QAM ARIANNA Administration Carvedilol 3.125 mg 10/24/24 17:00 10/25/24 07:31 Carvedilol 3.125 Mg Tab PO 11/23/24 16:59 3.125 mg BIDM ARIANNA Administration Enoxaparin Sodium 40 mg 10/22/24 09:00 10/24/24 09:16 Enoxaparin Inj 40 Mg/0.4 Ml Syr SQ 11/21/24 08:59 40 mg Q24H ARIANNA Administration Magnesium Sulfate/Dextrose 1 gm in 100 mls @ 50 mls/hr 10/25/24 07:15 10/25/24 09:07 Magnesium Sulfate / D5w IV 10/25/24 15:14 50 mls/hr Q2H ARIANNA Administration Lisinopril 40 mg 10/22/24 09:00 10/25/24 07:32 Lisinopril 40 Mg Tab PO 11/21/24 08:59 40 mg QAM ARIANNA Administration Oxycodone HCl 5 mg 10/22/24 01:57 04/26/25 02:13 Oxycodone Hcl Ir 5 Mg Tab (Immediate Release) PO 11/05/24 01:56 5 mg Q6H PRN Administration Severe Pain (Scale 7, 8, 9,10) Potassium Chloride 40 meq 10/23/24 09:15 10/25/24 07:32 Potassium Chloride Pwd 20 Meq Pack PO 11/22/24 09:14 40 meq QAM ARIANNA Administration Urea 15 gm 10/23/24 21:00 10/25/24 07:32 Urea (Urea-Na) 15 Gm Pack PO 11/22/24 20:59 15 gm BID ARIANNA Administration Vitamin D 125 mcg 10/22/24 09:00 10/25/24 07:32 Cholecalciferol 125 Mcg (5,000 Units) Tab PO 11/21/24 08:59 125 mcg QAM ARIANNA Administration
--- NOTE | 2024-10-25 10:41 | Nephrology Progress Note ---
Date of Service October 25, 2024 Assessment & Plan (1) Chronic hyponatremia: Plan: Due to syndrome of inappropriate ADH. Main trigger is back pain and sertraline. Was wnl until surgery. admitted 10/21 w/ sNa 129; has remained in this area ever since. Sodium is up to 131 today. Urine osmolality 742 and urine sodium of 31. - increased urea to 30 gm bid - high-protein diet about 80 gm daily; continue protein shakes which do NOT count toward FR - started lasix - fluid limit 1.2 L daily - maintain eukalemia > bid K appropriately stopped by hospitalist - daily BMP - continue sertraline for now; can reevaluate dose/indications at OP follow-up with PCP Care coordinated w/ Dr Srinivasan via [employer]Text re lasix, higher urea, protein intake goals; we are in agreement (2) Hypertension: Plan: blood pressure is well above target. Continue amlodipine and lisinopril. Coreg 3.125 mg twice daily added 10/24 PM >> monitor bradycardia. >will give one dose lasix 20 mg IV today (3) Back pain: Plan: Continue pain control per primary team. s/p 10/26 I&D Admission and Anticipated Discharge Date Admission Date: October 21, 2024 Subjective s/p I&D . at bedside > reports pt barely eating; trying to get him to take protein shake. pt denies pain. endorses poor appetite. no sob, no edema. tells me he had diarrhea today <> ?reliability Review of Systems 2 Review of Systems: All systems reviewed & are unremarkable except as noted in Subjective Physical Exam 2 Constitutional: well developed, well nourished, + frail appearing and cooperative; no acute distress Eyes: EOM intact bilaterally ENMT: Mouth: + dry oral mucous membranes Neck: no nuchal rigidity Respiratory: normal respiratory effort Auscultation: + diminished lung sounds Cardiovascular: Rate/Rhythm: regular rate and + bradycardic Extremities: no edema Gastrointestinal (Abdomen): Inspection/Auscultation: normal bowel sounds P ercussion/Palpation: abdomen soft; abdomen nontender Musculoskeletal: Extremities: strength 5/5 throughout Skin: no rashes, warm and dry Neurologic: valdez, fluent though limited speech; + pill rolling tremor Psychiatric: Orientation: alert and oriented to person Results & Data Vital Signs (Past 12 Hours) Vital Signs Temp Pulse Resp BP Pulse Ox O2 Del Method 10/25/24 07:23 36.6 C 62 12 178/77 H 95 Room Air Laboratory Results 10/25/24 04:14 10/25/24 04:14
[2024-10-25] MEDS: SERTRALINE HCL 100 MG TABLET PO SCH (10:48)
--- NOTE | 2024-10-25 12:23 | History & Physical Bridge Note ---
Date of Service October 25, 2024 History & Physical Bridge Note I have examined the patient, reviewed the History & Physical and in the interval since the performance of the History & Physical I have noted the following changes of clinical significance: no changes noted Irrigation and debridement lumbar spine
--- NOTE | 2024-10-25 12:33 | Anesthesiology Consultation ---
Date of Service October 25, 2024 Assessment & Plan (1) Encounter for pre-operative examination: Chart Review Chart Review: Acceptable Risk for Surgery (required glidescope in past) History Surgery Operation Date: 10/25/24 08:20 Proposed Procedures p Incision and Drainage Lumbar Spine - Sarthak Lira DO Height/Weight Height: 5 ft 6 in Weight: 76.5 kg Allergies Allergy/AdvReac Type Severity Reaction Status Date / Time aspirin Allergy Intermediate Rash Verified 10/21/24 22:16 Medications Home Medications Medication Instructions Recorded Confirmed Last Taken allopurinol 300 mg tablet 300 mg PO QAM 09/21/24 10/21/24 10/21/24 amlodipine 10 mg tablet (Norvasc) 10 mg PO QAM 09/21/24 10/21/24 10/21/24 atorvastatin 40 mg tablet (Lipitor) 40 mg PO QAM 09/21/24 10/21/24 10/21/24 cholecalciferol (vitamin D3) 125 250 mcg PO QAM 09/21/24 10/21/24 10/21/24 mcg (5,000 unit) tablet (Vitamin D3) lisinopril 40 mg tablet 40 mg PO QAM 09/21/24 10/21/24 10/21/24 sertraline 100 mg tablet (Zoloft) 100 mg PO QAM 09/21/24 10/21/24 10/21/24 oxycodone 5 mg tablet 5 mg PO Q6H PRN pain #30 tabs 10/12/24 10/21/24 Unknown tramadol 50 mg tablet 50 mg PO Q6H PRN pain, moderate 10/12/24 10/21/24 Unknown #30 tabs Active Medications Generic Name Dose Route Start Last Admin Trade Name Freq PRN Reason Stop Dose Admin Allopurinol 300 mg 10/22/24 09:00 10/25/24 07:32 Allopurinol 300 Mg Tab PO 11/21/24 08:59 300 mg QAM ARIANNA Administration Amlodipine Besylate 10 mg 10/22/24 09:00 10/25/24 07:31 Amlodipine Besylate 5 Mg Tab PO 11/21/24 08:59 10 mg QAM ARIANNA Administration Atorvastatin Calcium 40 mg 10/22/24 09:00 10/25/24 07:31 Atorvastatin 40 Mg Tab PO 11/21/24 08:59 40 mg QAM ARIANNA Administration Carvedilol 3.125 mg 10/24/24 17:00 10/25/24 07:31 Carvedilol 3.125 Mg Tab PO 11/23/24 16:59 3.125 mg BIDM ARIANNA Administration Enoxaparin Sodium 40 mg 10/22/24 09:00 10/24/24 09:16 Enoxaparin Inj 40 Mg/0.4 Ml Syr SQ 11/21/24 08:59 40 mg Q24H ARIANNA Administration Magnesium Sulfate/Dextrose 1 gm in 100 mls @ 50 mls/hr 10/25/24 07:15 10/25/24 11:06 Magnesium Sulfate / D5w IV 10/25/24 15:14 50 mls/hr Q2H ARIANNA Administration Lisinopril 40 mg 10/22/24 09:00 10/25/24 07:32 Lisinopril 40 Mg Tab PO 11/21/24 08:59 40 mg QAM ARIANNA Administration Oxycodone HCl 5 mg 10/22/24 01:57 10/23/24 02:13 Oxycodone Hcl Ir 5 Mg Tab (Immediate Release) PO 11/05/24 01:56 5 mg Q6H PRN Administration Severe Pain (Scale 7, 8, 9,10) Potassium Chloride 40 meq 10/23/24 09:15 10/25/24 07:32 Potassium Chloride Pwd 20 Meq Pack PO 11/22/24 09:14 40 meq QAM ARIANNA Administration Sertraline HCl 100 mg 10/25/24 10:45 10/25/24 10:48 Sertraline Hcl 100 Mg Tablet PO 11/24/24 10:44 100 mg QAM ARIANNA Administration Urea 15 gm 10/23/24 21:00 10/25/24 07:32 Urea (Urea-Na) 15 Gm Pack PO 11/22/24 20:59 15 gm BID ARIANNA Administration Vitamin D 125 mcg 10/22/24 09:00 10/25/24 07:32 Cholecalciferol 125 Mcg (5,000 Units) Tab PO 11/21/24 08:59 125 mcg QAM ARIANNA Administration NPO Date Last Intake of Fluids: 10/24/24 Last Intake of Fluids Comment: before [place] Date Last Intake of Solids: 10/24/24 Last Intake of Solids Comment: before [place] Past Medical History Medical History (Updated 10/25/24 @ 12:30 by Juan Gordon MD) Chronic hyponatremia Anemia Anxiety Gout Prediabetes Ascending aorta enlargement Echo 12/2023: Borderline enlarged ascending aorta, 3.7 cm History of left bundle branch block (LBBB) Dating back to at least 11/2022 per cardio records Hx of diverticulitis of colon History of prostate cancer Dx "years ago"; s/p prostatectomy History of anxiety Hx of gout Hx of hyperlipidemia History of hypertension Past Surgical History Surgical History History of ERCP EUS/ERCP (05/10/16): Glidescope#4, ETT 7.5 at [facility] Hx of difficult intubation Per [facility] 2016 records, "anesthesia notes from 2013 prostate surgery, needed glidescope after 3 attempts" Hx of cholecystectomy History of esophagogastroduodenoscopy (EGD) Hx of colonoscopy Hx of lumbosacral spine surgery 2009, L4-L5 decompression and fusion History of prostatectomy Hx of eye surgery metal removed from eye Social History Smoking Status: Never smoker Do You Dip or Chew Tobacco: Yes Hx Alcohol Use: Yes Alcohol type: beer alcohol intake frequency: a few times a week Alcohol Intake Frequency Comment: hasn't consumed alcohol in approximately two weeks Hx Substance Use: No substance use type: does not use Physical Exam Vital Signs Last Vital Signs Temp 37.2 C 10/25/24 12:02 Pulse 55 L 10/25/24 12:02 Resp 16 10/25/24 12:02 BP 153/63 H 10/25/24 12:02 Pulse Ox 98 10/25/24 12:02 O2 Del Method Room Air 10/25/24 12:02 O2 Flow Rate 4 10/23/24 20:13 Testing Laboratory Results 10/25/24 04:14 10/25/24 04:14 PT 11.3 Seconds (9.0-12.0) 10/21/24 20:18 INR 1.0 (0.9-1.1) 10/21/24 20:18 APTT 31 Seconds (21-31) 10/21/24 20:18 Urine Color Dark Yellow 10/22/24 22:43 Urine Appearance Clear (Clear) 10/22/24 22:43 Urine pH 6.0 (4.5-7.5) 10/22/24 22:43 Ur Specific [place] 1.029 (1.000-1.030) 10/22/24 22:43 Urine Protein 1+ (Negative) H 10/22/24 22:43 Urine Glucose (UA) Negative (Negative) 10/22/24 22:43 Urine Ketones Negative (Negative) 10/22/24 22:43 Urine Nitrite Negative (Negative) 10/22/24 22:43 Ur Leukocyte Esterase Negative (Negative) 10/22/24 22:43 Urine WBC (Auto) 0-5 /hpf (0-5) 10/22/24 22:43 Urine RBC (Auto) 0-2 /hpf (0-2) 10/22/24 22:43 U Hyaline Cast (Auto) 3-5 /lpf (0-2) H 10/22/24 22:43 U Epithel Cells (Auto) 0-2 /hpf (0-2) 10/22/24 22:43 Urine Bacteria (Auto) None Seen (None Seen) 10/22/24 22:43 Electrocardiogram Date: 10/21/24 Findings: + LBBB and + SB @ (56) Echocardiogram Date: 01/05/25 EF: 55-60% LV Function: normal Valvular Disease: + MR (mild)
[2024-10-25] MEDS ORDERED: ATROPINE SULFATE 0.1 MG/ML 10ML SYR IV PRN (12:41)
[2024-10-25] MEDS: LACTATED RINGER'S 1,000 ML IV SCH (12:41)
[2024-10-25] MEDS ORDERED: HYDROmorphone INJ 1 MG/ML SYRINGE IV PRN (12:41)
[2024-10-25] MEDS ORDERED: PROMETHAZINE HCL 6.25 MG in SODIUM CHLORIDE 0.9% 50 ML IV PRN (12:41)
[2024-10-25] MEDS: ceFAZolin 2000MG 2,000 MG/15 ML SYR IV ONE (12:42)
[2024-10-25] MEDS ORDERED: ePHEDrine sulfate 50 MG/5 ML SYR ONE (13:07)
[2024-10-25] MEDS ORDERED: SUGAMMADEX SODIUM 200 MG/2 ML VIAL IV ONE (13:08)
[2024-10-25] MEDS: BUPIVACAINE/EPINEPHRINE 0.5% MPF 1:200,000 30 ML VIAL ONE (13:27)
[2024-10-25] MEDS: ceFAZolin 330 MG/ML 1 GM VIAL ONE (13:27)
[2024-10-25] MEDS: GENTAMICIN SULFATE 40 MG/ML 2 ML VIAL ONE (13:28)
--- NOTE | 2024-10-25 13:29 | Operative Report ---
Post Operative Report Pre & Post Diagnosis Operation Date: 10/25/24 08:20 Pre-Op Diagnosis: Lumbar Epidural Fluid Collection, Rule Out Abscess Post-Op Diagnosis: Lumbar Epidural Fluid Collection, Rule Out Abscess I identified the patient and participated in the time-out.: Yes Procedure Operation Date: 10/25/24 08:20 Actual Procedures Evacuation of hematoma seroma of the lumbar spine Surgeon Sarthak Lira, [employer]of[employer] Subcontractor Varsha Kasper Estimated Blood Loss 20 (150 lumbar fluid) Findings See Below Epidural fluid collection did have the appearance of becoming infected. Cultures were obtained. Specimens Epidural cultures Indications This is a 79-year-old male that presents postoperatively with epidural fluid collection and decline in status. Subsequently he is here for irrigation debridement. Description of Procedure Patient was met with identified informed consent obtained. Patient was then taken to the operative suite underwent intubation placed in the prone position on the Jorge table on top of the Kris frame. All bony prominences well-pad ded and eyes inspected to ensure no external pressure placed upon them. This point the lumbar spine was prepped and draped in normal sterile fashion. Sharp dissection was performed through the previous incision. I then opened the muscular fascial layer to identify a large collection of epidural fluid. No fluid was cloudy and appeared to be at the beginning stages of an infectious process. Cultures were obtained. Several liters of antibiotic solution were then irrigated throughout the incision. I ensured all hematoma and abnormal tissue was debrided. Approximate 10 cc of Stimulan beads impregnated with vancomycin gentamicin were then placed throughout the wound. 215 round WES drains were inserted. The incision was then closed with 1 Vicryl the fascia 2-0 Vicryl subcutaneously and 4 Monocryl for final skin closure. Steri-Strips sterile dressing placed. Patient waken taken to PACU in stable condition. Please note Varsha Kasper was present at the entire procedure and while the pa tient positioning complex portion of the surgery and final skin closure. I attest to the content of the Intraoperative Record and any orders documented therein. Any exceptions are noted below.
[2024-10-25] MEDS: VANCOMYCIN HCL 1000MG/20ML VIAL ONE (13:30)
[2024-10-25] MEDS ORDERED: VANCOMYCIN CONSULT ACTIVE PRN ×2 (13:36→14:45)
--- NOTE | 2024-10-25 13:38 | Communication Note ---
Date of Service: October 25, 2024 Reviewed op report--notes fluid concerning for potential infection. Will add empiric antibiotics and follow cultures.
--- NOTE | 2024-10-25 14:06 | Pharmacy Report ---
Pharmacy PK ABX Note - Date of Service October 25, 2024 - Assessment and Plan Assessment 79 year old M receiving Vancomycin and Zosyn for treatment of a possible infection in the back. Patient had multilevel lumbar decompression and fusion on 10/11 and presented to the ER 10/21 with progressive weakness and increased back pain. Lumbar MRI showed large postop fluid collection. I&D done 10/25. It was noted that epidural fluid collection had the appearance of being infected. Cultures of the back x 2 were obtained and are currently pending. * Patient has leukocytosis but has been afebrile. Renal function has been stable and is at baseline. Day # 1 of antimicrobial therapy. Plan Vancomycin * Loading dose: 1500 mg IV x 1 * Maintenance dose: 1250 mg IV every 12 hours * Regimen is predicted to achieve target AUC/ARTURO of 400-600 mg/L.hr * Random level ordered for: 10/27/24 Pharmacy will continue to follow and will adjust dose/frequency as necessary. Thank you. Pharmacy has transitioned to AUC monitoring for vancomycin. AUC/ARTURO is the preferred PK/PD target and is associated with decreased risk of nephrotoxicity compared to traditional trough targets.
--- NOTE | 2024-10-25 14:40 | Anesthesiology Progress Note ---
Date of Service October 25, 2024 Anesthesia Post Procedure Vital Signs Vital Signs: Temp Pulse Pulse Resp BP BP Pulse Ox 10/25/24 14:25 36.7 C 58 L 22 131/75 96 10/25/24 14:15 60 18 149/65 H 97 10/25/24 14:05 56 L 22 141/67 H 98 10/25/24 13:55 58 L 24 144/65 H 99 10/25/24 13:44 36.2 C L 61 16 139/63 97 10/25/24 12:02 37.2 C 55 L 16 153/63 H 98 10/25/24 11:49 36.4 C L 57 L 158/68 H 96 10/25/24 07:23 36.6 C 62 12 178/77 H 95 10/24/24 21:05 166/73 H 10/24/24 20:16 36.5 C 84 18 188/53 H 94 10/24/24 19:53 10/24/24 15:11 37.4 C 80 20 176/72 H 93 O2 Del Method O2 Flow Rate 10/25/24 14:25 Room Air 10/25/24 14:15 Room Air 10/25/24 14:05 Oxymask 6 10/25/24 13:55 Oxymask 6 10/25/24 13:44 Oxymask 6 10/25/24 12:02 Room Air 10/25/24 11:49 Room Air 10/25/24 07:23 Room Air 10/24/24 21:05 10/24/24 20:16 Room Air 10/24/24 19:53 Room Air 10/24/24 15:11 Room Air Pain Intensity Medial Back: Pain Intensity: 7 Back: Pain Intensity: 5 Right Hip: Pain Intensity: 7 Transfer of Care Handoff Completed per policy Notes Mental Status: alert / awake / arousable and participated in evaluation Patient Amnestic to Procedure: Yes Nausea / Vomiting: adequately controlled Pain: adequately controlled Airway Patency, RR, SpO2: stable & adequate BP & HR: stable & adequate Hydration State: stable & adequate Anesthetic Complications: no major complications apparent
[2024-10-25] MEDS ORDERED: NALOXONE HCL 0.4 MG/1 ML VIAL/CARP IV PRN (14:45)
[2024-10-25] MEDS ORDERED: FAMOTIDINE 20 MG TAB PO PRN (14:45)
[2024-10-25] MEDS ORDERED: ONDANSETRON INJ 2 MG/ML 2 ML VIAL IV PRN (14:45)
[2024-10-25] MEDS ORDERED: PROMETHAZINE 12.5 MG/50.5 ML BAG IV PRN (14:45)
[2024-10-25] MEDS ORDERED: diphenhydrAMINE Capsule 25 MG CAP PO PRN (14:45)
[2024-10-25] MEDS ORDERED: ACETAMINOPHEN 1,000 MG/100 ML VIAL IV PRN (14:45)
[2024-10-25] MEDS ORDERED: DO NOT ADMINISTER FLU VACCINE PRN (14:45)
[2024-10-25] MEDS ORDERED: bisacodyL 10 MG SUPP PR PRN (14:45)
[2024-10-25] MEDS ORDERED: LORazepam 0.5 MG TAB PO PRN (14:45)
[2024-10-25] MEDS ORDERED: ONDANSETRON 4 MG OD TAB PO PRN (14:45)
[2024-10-25] MEDS ORDERED: LORazepam 2 MG/1 ML VIAL IV PRN (14:45)
[2024-10-25] MEDS ORDERED: DO NOT ADMINISTER PNEUMOCOCCAL VACCINE PRN (14:45)
[2024-10-25] MEDS ORDERED: METOCLOPRAMIDE HCL INJ 5 MG/ML 2 ML VIAL IV PRN (14:45)
[2024-10-25] MEDS ORDERED: ALUMINUM/MAGNESIUM SUSP 30 ML UDC PO PRN (14:45)
[2024-10-25] MEDS ORDERED: SOD PHOSPHATE/SOD BIPHOSPHATE ENEMA 132 ML BTL PR PRN (14:45)
[2024-10-25] MEDS ORDERED: MAGNESIUM HYDROXIDE SUSP 30 ML UDC PO PRN (14:45)
[2024-10-25] MEDS ORDERED: oxyCODONE HCL IR 5 MG TAB (IMMEDIATE RELEASE) PO PRN (14:45)
[2024-10-25] MEDS: VANCOMYCIN HCL 1,500 MG in SODIUM CHLORIDE 0.9% 500 ML IV ONE (15:18)
[2024-10-25] MEDS: PIPERACILLIN/TAZOBACTAM 4.5 GM/100 ML BAG IV STA (16:31)
[2024-10-25] MEDS: DOCUSATE SODIUM/SENNA 50/8.6MG TAB PO SCH (20:44)
[2024-10-25] MEDS: PIPERACILLIN/TAZOBACTAM 4.5 GM/100 ML BAG IV SCH (20:44)
[2024-10-25] MEDS: VANCOMYCIN HCL 1,250 MG in SODIUM CHLORIDE 0.9% 250 ML IV SCH (23:22)
[2024-10-25] MEDS ORDERED: VANCOMYCIN HCL 1,250 MG in SODIUM CHLORIDE 0.9% 250 ML IV SCH (23:30)
[2024-10-26 04:20] LABS: Hematocrit (blood only) 25.1 % (42.0-52.0); Hemoglobin 8.2 g/dl (14.0-18.0); Immature Granulocytes # (auto) 0.08 K/uL (0.01-0.20); Immature Granulocytes % (auto) 0.8 %; Lymphocytes # (auto) 0.56 K/uL (1.20-3.40); Lymphocytes % (auto) 5.6 %; Mean Corpuscular Hemoglobin 29.6 pg (25.0-34.0); Mean Corpuscular Hgb Conc 32.7 g/dL (32.0-36.0); Mean Corpuscular Volume 90.6 fL (80.0-100.0); Mean Platelet Volume 10.2 fL (9.4-12.4); Monocytes # (auto) 0.41 K/uL (0.11-0.59); Monocytes % (auto) 4.1 %; Neutrophils # (auto) 9.01 K/uL (1.40-6.50); Neutrophils % (auto) 89.5 %; Platelet Count 429 K/uL (130-400); RDW Coefficient of Variation 13.3 % (11.5-14.5); RDW Standard Deviation 43.8 fL (36.4-46.3); Red Blood Count 2.77 M/uL (4.70-6.10); White Blood Count 10.06 K/ul (4.8-10.8)
[2024-10-26 04:57] LABS: BUN Creatinine Ratio 42.9 (10-20); Calcium 8.4 mg/dl (8.6-10.3); Creatinine Clr Calc Pharmacy 88.6 ml/min; Potassium 4.5 mmol/L (3.5-5.1)
[2024-10-26] MEDS: POLYETHYLENE (MIRALAX) 17 GM PACK PO SCH (05:41)
[2024-10-26] MEDS: ACETAMINOPHEN 500 MG TAB PO PRN (06:30)
--- NOTE | 2024-10-26 12:17 | Orthopedic Progress Note ---
Date of Service October 26, 2024 Assessment & Plan (1) Abscess in epidural space of L2-L5 lumbar spine: Plan: At this time we will monitor his WES output continue physical therapy as tolerated await for final cultures and antibiotic recommendations. Admission and Anticipated Discharge Date Admission Date: October 21, 2024 Subjective Patient's back pain is controlled leg pain improved. He is tolerating physical therapy. Physical Exam Physical Exam: Patient is in the chair at bedside. He is comfortable. Good strength testing. Change functioning. Results & Data Vital Signs (Past 12 Hours) Vital Signs Temp Pulse Pulse Resp BP Pulse Ox O2 Del Method 10/26/24 11:29 36.2 C L 53 L 20 148/75 H 100 Room Air 10/26/24 07:13 36.3 C L 54 L 16 148/70 H 100 Room Air 10/26/24 02:28 36.2 C L 67 19 164/70 H 95 Room Air 10/26/24 02:00 36.2 C L 67 19 164/70 H 95 Room Air
--- NOTE | 2024-10-26 13:46 | Hospitalist Progress Note ---
Date of Service October 26, 2024 Assessment & Plan (1) Weakness: Plan: Mr. Polo is a 79-year-old male with past medical history significant for dyslipidemia, prediabetes, ascending aortic enlargement, left bundle branch block, hypertension, irritable bowel syndrome, steatohepatitis, generalized osteoarthritis, lumbar disc disease, history of prostate cancer, spinal stenosis status post back surgery on 10/11/2024 comes because of weakness and ambulatory dysfunction and back pain. Patient states that he has been progressively weaker since his procedure. 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 Nephrology evaluated: on urea bid at this time. MRI with the seroma and s/p ID 10/25. Leukocytosis noted and reports from OP note concerning for developing infection Vanc Zosyn started on 10/25 postoperatively. ID consulted: transitioned to IV ampcillin Plan for 6 weeks IV ampcillin EOT 12/07 will need chronic suppressive thereafter and ID follow up #Acute encephalopathy, suspect delirium noted last admission, fluctuating, intermittent visual hallucinations Will avoid benzos and antipsychotics as able and opt for reorientation Suspect multifactorial iso pain/hospitalization/prior episodes improved #Seroma, concern for infectious development, s/p ID 10/25 #Generalized Weakness #Ambulatory dysfunction #Ongoing Back pain s/p back surgery PT OT: rehab CT lumbar spine and CT abdomen pelvis no acute findings Orthospine consult: MRI with seroma -I&D this morning anticipated Concern for infection per ortho OP note: -Started Vanc/Zosyn 10/25 -Consult ID for recs given enterococcus: plan IV ampicillin q 6 hours EOT 12/07 chronic suppressive therapy, ID follow up #Hyponatremia, suspect SIADH 2/2 pain d/c fluids, low serum osmo with urine osmo >100 FR 1200, Trend BMP qd tsh and cortisol wnl Nephrology consulted, reviewed recommendations:urea bid for now, s/p 1x lasix #Leukocytosis improving Chest x-ray okay suspect reactive iso pain and seroma noted to have enterococcus in cultures continue broad coverage with abx and narrow with culture ID consult #Mild elevation troponin plateaued, asymptomatic EKG okay likely demand, low suspicion for ACS #Anemia, likely inflammatory, 2/2 post op losses Hemoglobin 8.5, Fe 10, TIBC 204, Transferrin sat 5%, ferritin 445.2 Hemoglobin was 8 on 10/15/2024 notable postop changes #Prediabetes CTM glucose in 120s #Hypertension on amlodipine, and lisinopril #Hyperlipidemia On statin #Depression On Zoloft #Ascending aortic enlargement Borderline enlarged at 3.7 cm on echo 12/2023 DVT prophylaxis Lovenox held for procedure, SCDs. Disposition Medical floor Full code Admission and Anticipated Discharge Date Admission Date: October 21, 2024 Subjective NAEO Reports feeling more comfortable than prior days s/p ID denies any new symptoms at this time, denies fevers chills or other acute concerns alert to being in a hosptial and situation but confused on time Physical Exam Constitutional: WD/WN, vitals as above (seemingly uncomfortable but no distress noted ) Respiratory: normal respiratory effort, lungs clear to auscultation Cardiovascular: RRR, no murmur, no edema Gastrointestinal (Abdomen): normal bowel sounds, soft, nontender, no hepatosplenomegaly Results & Data Results & Data Vital Signs (Past 12 Hours) Vital Signs Temp Pulse Pulse Resp BP Pulse Ox O2 Del Method 10/26/24 11:29 36.2 C L 53 L 20 148/75 H 100 Room Air 10/26/24 07:13 36.3 C L 54 L 16 148/70 H 100 Room Air 10/26/24 02:28 36.2 C L 67 19 164/70 H 95 Room Air 10/26/24 02:00 36.2 C L 67 19 164/70 H 95 Room Air Laboratory Results Short CBC 10/26/24 Range/Units 03:39 WBC 10.06 (4.8-10.8) K/ul Hgb 8.2 L (14.0-18.0) g/dl Hct 25.1 L (42.0-52.0) % Plt Count 429 H (130-400) K/uL BMP 10/26/24 03:39 Sodium 131 L Potassium 4.5 D Chloride 97 L Carbon Dioxide 27 BUN 27 H Creatinine 0.63 Glucose 131 H Calcium 8.4 L Medications Administered Home Medications Medication Instructions Recorded Confirmed Last Taken allopurinol 300 mg tablet 300 mg PO QAM 09/21/24 10/21/24 10/21/24 amlodipine 10 mg tablet (Norvasc) 10 mg PO QAM 09/21/24 10/21/24 10/21/24 atorvastatin 40 mg tablet (Lipitor) 40 mg PO QAM 09/21/24 10/21/24 10/21/24 cholecalciferol (vitamin D3) 125 250 mcg PO QAM 09/21/24 10/21/24 10/21/24 mcg (5,000 unit) tablet (Vitamin D3) lisinopril 40 mg tablet 40 mg PO QAM 09/21/24 10/21/24 10/21/24 sertraline 100 mg tablet (Zoloft) 100 mg PO QAM 09/21/24 10/21/24 10/21/24 oxycodone 5 mg tablet 5 mg PO Q6H PRN pain #30 tabs 10/12/24 10/21/24 Unknown tramadol 50 mg tablet 50 mg PO Q6H PRN pain, moderate 10/12/24 10/21/24 Unknown #30 tabs Active Medications Generic Name Dose Route Start Last Admin Trade Name Freq PRN Reason Stop Dose Admin Acetaminophen 1,000 mg 10/25/24 14:45 10/26/24 06:30 Acetaminophen 500 Mg Tab PO 11/24/24 14:44 1,000 mg Q8H PRN Administration MILD Pain Scale 1,2,3 & Pre PT Allopurinol 300 mg 10/22/24 09:00 10/26/24 08:05 Allopurinol 300 Mg Tab PO 11/21/24 08:59 300 mg QAM ARIANNA Administration Amlodipine Besylate 10 mg 10/22/24 09:00 10/26/24 08:03 Amlodipine Besylate 5 Mg Tab PO 11/21/24 08:59 10 mg QAM ARIANNA Administration Atorvastatin Calcium 40 mg 10/22/24 09:00 10/26/24 08:03 Atorvastatin 40 Mg Tab PO 11/21/24 08:59 40 mg QAM ARIANNA Administration Carvedilol 3.125 mg 10/24/24 17:00 10/26/24 08:02 Carvedilol 3.125 Mg Tab PO 11/23/24 16:59 Not Given BIDM ARIANNA Piperacillin Sod/Tazobactam Sod 4.5 gm in 100 mls @ 25 mls/hr 10/25/24 21:00 10/26/24 12:42 Zosyn IV 10/27/24 20:59 25 mls/hr Q8H ARIANNA Administration Protocol Vancomycin HCl 1,250 mg/ 275 mls @ 200 mls/hr 10/25/24 23:00 10/26/24 11:36 Sodium Chloride IV 12/06/24 22:59 Infused Q12H ARIANNA Infusion Lisinopril 40 mg 10/22/24 09:00 10/26/24 08:03 Lisinopril 40 Mg Tab PO 11/21/24 08:59 40 mg QAM ARIANNA Administration Potassium Chloride 40 meq 10/23/24 09:15 10/26/24 08:03 Potassium Chloride Pwd 20 Meq Pack PO 11/22/24 09:14 40 meq QAM ARIANNA Administration Senna/Docusate Sodium 2 tab 10/25/24 21:00 10/25/24 20:44 Docusate Sodium/Senna 50/8.6mg Tab PO 11/24/24 20:59 2 tab HS ARIANNA Administration Sertraline HCl 100 mg 10/25/24 10:45 10/26/24 08:04 Sertraline Hcl 100 Mg Tablet PO 11/24/24 10:44 100 mg QAM ARIANNA Administration Urea 15 gm 10/23/24 21:00 10/26/24 08:03 Urea (Urea-Na) 15 Gm Pack PO 11/22/24 20:59 15 gm BID ARIANNA Administration Vitamin D 125 mcg 10/22/24 09:00 10/26/24 08:04 Cholecalciferol 125 Mcg (5,000 Units) Tab PO 11/21/24 08:59 125 mcg QAM ARIANNA Administration
[2024-10-26] MEDS: FUROSEMIDE INJ 20 MG/2 ML VIAL IV ONE (14:50)
--- NOTE | 2024-10-26 15:22 | Infectious Disease Consult ---
Date of Service October 26, 2024 Telehealth Information I performed this visit using a real-time telehealth connection between my location and the patients location ([facility]). After connecting through interactive tele-video, patient was identified by name and date of and/or wristband check.Patient (or authorized healthcare compliance representative dealer) was informed that this was a telemedicine visit and it was being conducted confidentially over secure lines. My office door was closed and no on e else was present in the room with me.Patient (or authorized healthcare compliance representative dealer) provided consent to proceed with the visit, expressed an understanding of privacy and security of the telemedicine visit, and gave permission to have a hospital compliance representative dealer in the room in order to assist with the visit and to conduct portions of the visit, as needed. I informed the patient (or authorized healthcare compliance representative dealer) that I reviewed their record and presented the opportunity for them to ask any questions regarding the visit today. The patient agreed to participate. Assessment & Plan (1) Infection associated with internal fixation device of spine: (2) Abscess in epidural space of L2-L5 lumbar spine: (3) Status post incision and drainage: (4) Enterococcus faecalis infection: Plan Please discontinue all current antibiotics and start on IV ampicillin. He will require 6 weeks of IV ampicillin to be followed with chronic suppressive therapy (likely with amoxicillin) if there are no plans to remove the fusion hardware. We will need to see and F/U in the clinic for continued care and management of chronic antibiotics. Thank you for consulting ID. We will continue to follow. History of Present Illness History of Present Illness Mr. Hawthorne is a 79 yo man with medical hx of HTN, IBS, prediabetes, ascending aortic aneurysm, and spinal stenosis status post laminectomy and fusion 15 years ago with revision on 10/11/2024 who was admitted to [facility] on 10/21 because of persistent back pain after his recent surgery and ambulatory dysfunction. On 10/11, he underwent posterior fusion hardware L4-L5 removal, decompression at multiple lumbar levels, excision of extradural mass L5-S1 and multiple interbody fusion. Now, he is coming with severe progressive back pain with ambulatory dysfunction. Orthopedic were consulted and MRI lumbar spine was performed which demonstrated fluid collections in the laminectomy bed and more superficially just deep to the skin with concern for infection. He was then taken by the orthopedic team for I&D on 10/25 and was found to have epidural fluid collection with beginning of infection. Cx sent intraoperatively grew e Faecalis. ID team was consulted for further recommendations to help guide antibiotic treatment. Allergies Allergy/AdvReac Type Severity Reaction Status Date / Time aspirin Allergy Intermediate Rash Verified 10/21/24 22:16 Home Medications Medication Instructions Recorded Confirmed Type allopurinol 300 mg tablet 300 mg PO QAM 09/21/24 10/21/24 History amlodipine 10 mg tablet (Norvasc) 10 mg PO QAM 09/21/24 10/21/24 History atorvastatin 40 mg tablet (Lipitor) 40 mg PO QAM 09/21/24 10/21/24 History cholecalciferol (vitamin D3) 125 250 mcg PO QAM 09/21/24 10/21/24 History mcg (5,000 unit) tablet (Vitamin D3) lisinopril 40 mg tablet 40 mg PO QAM 09/21/24 10/21/24 History sertraline 100 mg tablet (Zoloft) 100 mg PO QAM 09/21/24 10/21/24 History oxycodone 5 mg tablet 5 mg PO Q6H PRN pain #30 tabs 10/12/24 10/21/24 Rx tramadol 50 mg tablet 50 mg PO Q6H PRN pain, moderate 10/12/24 10/21/24 Rx #30 tabs Patient History Medical History (Updated 10/26/24 @ 15:21 by Martín Edmond MD) Chronic hyponatremia Anemia Anxiety Gout Prediabetes Ascending aorta enlargement Echo 12/2023: Borderline enlarged ascending aorta, 3.7 cm History of left bundle branch block (LBBB) Dating back to at least 11/2022 per cardio records Hx of diverticulitis of colon History of prostate cancer Dx "years ago"; s/p prostatectomy History of anxiety Hx of gout Hx of hyperlipidemia History of hypertension Surgical History (Updated 10/26/24 @ 15:21 by Martín Edmond MD) History of ERCP EUS/ERCP (05/10/16): Glidescope#4, ETT 7.5 at [facility] Hx of difficult intubation Per [facility] 2016 records, "anesthesia notes from 2012 prostate surgery, needed glidescope after 3 attempts" Hx of cholecystectomy History of esophagogastroduodenoscopy (EGD) Hx of colonoscopy Hx of lumbosacral spine surgery 2009, L4-L5 decompression and fusion History of prostatectomy Hx of eye surgery metal removed from eye Social History Smoking Status: Never smoker Tobacco Type: Smokeless Tobacco (Dip or Chew) Second Hand Exposure: Yes; Do You Dip or Chew Tobacco: Yes; Tobacco Cessation Education Requested by Patient: No Hx Alcohol Use: Yes Alcohol type: beer Hx Substance Use: No Preferred Language: Slovenian Communication Ability: Effective Active Directory Administrator Required: No Beliefs That Will Affect Care: None Current Living Situation: Spouse Current Living Situation Comment: lives with Other Information That Helps Us Care for You: No Feels Safe at Home: Yes Safety Concerns: Feels Safe At This Time Assistive Devices: Cane, Crutches and Walker Review of Systems Neg except for what was mentioned in H&P. Physical Exam Couldn't be performed as the visit was conducted via telemed. Results & Data Vital Signs (Past 12 Hours) Vital Signs Temp Pulse Resp BP Pulse Ox O2 Del Method 10/26/24 11:29 36.2 C L 53 L 20 148/75 H 100 Room Air 10/26/24 07:13 36.3 C L 54 L 16 148/70 H 100 Room Air Laboratory Results Microbiology: 10/25: 2 intraoperative tissue Cx growing E faecalis Diagnostic Findings MRI spine on 10/24: Redemonstrated postsurgical changes of recent L2-S1 posterior instrumented fusion with laminectomies. Extensive metal artifact from the hardware precludes adequate evaluation of the spine and the paraspinal elements at these levels. Within this limitation: Fluid collections as described above in the laminectomy bed and more superficially just deep to the skin as above. This may represent postsurgical fluid collection such as seromas or hematomas. Superimposed infection difficult to exclude. Immediately above the surgical level at L1-2, there is a broad-based disc bulge with bilateral facet arthropathy and thickening of the ligamentum flavum apparently resulting in high-grade tricompartmental spinal canal stenosis and neural foraminal narrowing.
[2024-10-26] MEDS: AMPICILLIN 2,000 MG in SODIUM CHLOR 0.9% MINI-B 100 ML IV SCH (16:57)
[2024-10-26] MEDS: traMADol HCL 50 MG TABLET PO PRN (19:24)
[2024-10-26] MEDS: UREA (UREA-NA) 15 GM PACK PO SCH (19:26)
--- NOTE | 2024-10-27 09:20 | Nephrology Progress Note ---
Date of Service October 27, 2024 Assessment & Plan (1) Chronic hyponatremia: Plan: Due to syndrome of inappropriate ADH. Main trigger is back pain and sertraline, but would not stop sertraline. Na was wnl until surgery. admitted 10/21 w/ sNa 129; has remained in this area ever since. Sodium is up to 132 today. Urine osmolality 742 and urine sodium of 31. - cont increased urea to 30 gm bid - high-protein diet about 80 gm daily; continue protein shakes which do NOT count toward FR - >>> started lasix 10 mg IV bid17 - >>> started K 10 mEq bid - fluid limit 1.8 L daily TOWARD WHICH PROTEIN shakes do NOT count - maintain eukalemia - daily BMP - continue sertraline for now; can reevaluate dose/indications at OP follow-up with PCP Care coordinated w/ Dr Stout via TText re lasix and K standing, protein intake goals; we are in agreement (2) Hypertension: Plan: blood pressure is improving though still elevated. Continue amlodipine and lisinopril. Coreg 3.125 mg twice daily added 10/24 PM >> monitor bradycardia. Had one dose lasix iv yesterday > consider standing dose for bp and sodium both (3) Back pain: Plan: Continue pain control per primary team. s/p 10/26 I&D > w/ E faecalis >> for 6 wks ampicillin and then chronic suppressive tx / amoxicillin Admission and Anticipated Discharge Date Admission Date: October 21, 2024 Subjective abscess cxs growing E faecalis >> ID recs as below; pain control ok except tailbone and R hip; no sob, no n/v. can't really tell me how well he's tolerating po. 4 BM so far today; miralax stopped Review of Systems 2 Review of Systems: All systems reviewed & are unremarkable except as noted in Subjective Physical Exam 2 Constitutional: well developed, well nourished, + frail appearing and cooperative; no acute distress Eyes: EOM intact bilaterally ENMT: Ears: no external ear abnormality Nose: no external nose abnormality Mouth: + dry oral mucous membranes Neck: no nuchal rigidity Respiratory: normal respiratory effort Auscultation: + diminished lung sounds Cardiovascular: Rate/Rhythm: regular rate and regular rhythm Extremities: n o edema Gastrointestinal (Abdomen): Inspection/Auscultation: normal bowel sounds and + abdominal surgical drain present Percussion/Palpation: abdomen soft; abdomen nontender Musculoskeletal: Extremities: strength 5/5 throughout (valdez) Skin: no rashes, warm and dry Psychiatric: Orientation: alert and oriented to person Results & Data Vital Signs (Past 12 Hours) Vital Signs Temp Pulse Resp BP Pulse Ox O2 Del Method 10/27/24 07:24 36.6 C 60 18 142/60 H 96 Room Air Laboratory Results 10/27/24 09:02 10/27/24 09:02
[2024-10-27 09:38] LABS: Hematocrit (blood only) 25.8 % (42.0-52.0); Hemoglobin 8.3 g/dl (14.0-18.0); Mean Corpuscular Hgb Conc 32.2 g/dL (32.0-36.0); Mean Corpuscular Volume 90.2 fL (80.0-100.0); Platelet Count 475 K/uL (130-400); RDW Coefficient of Variation 13.6 % (11.5-14.5); RDW Standard Deviation 45.4 fL (36.4-46.3); Red Blood Count 2.86 M/uL (4.70-6.10); White Blood Count 11.17 K/ul (4.8-10.8)
[2024-10-27] MEDS ORDERED: VANCOMYCIN LEVEL ONE (10:00)
--- NOTE | 2024-10-27 10:02 | Orthopedic Progress Note ---
Date of Service October 27, 2024 Assessment & Plan (1) Status post incision and drainage: Plan: At this time we will continue physical therapy and his WES drains. He will be a candidate for rehab pending clearance from medicine. Admission and Anticipated Discharge Date Admission Date: October 21, 2024 Subjective Patient complaining of some modest back pain which is controlled. Denies any leg pain. Feels he is tolerating physical therapy. Physical Exam Physical Exam: Patient currently in bed. Distracted testing. Results & Data Vital Signs (Past 12 Hours) Vital Signs Temp Pulse Resp BP Pulse Ox O2 Del Method 10/27/24 07:24 36.6 C 60 18 142/60 H 96 Room Air
[2024-10-27 10:07] LABS: BUN Creatinine Ratio 86.1 (10-20); Calcium 8.8 mg/dl (8.6-10.3); Creatinine Clr Calc Pharmacy 77.5 ml/min; Magnesium 1.6 mg/dl (1.7-2.4); Potassium 3.8 mmol/L (3.5-5.1)
[2024-10-27] MEDS: FUROSEMIDE INJ 20 MG/2 ML VIAL IV SCH (11:20)
[2024-10-27] MEDS: POTASSIUM CHLORIDE 10 MEQ TABCR PO SCH (11:20)
--- NOTE | 2024-10-27 11:33 | Hospitalist Progress Note ---
Date of Service October 27, 2024 Assessment & Plan (1) Weakness: Plan: Mr. Polo is a 79-year-old male with past medical history significant for dyslipidemia, prediabetes, ascending aortic enlargement, left bundle branch block, hypertension, irritable bowel syndrome, steatohepatitis, generalized osteoarthritis, lumbar disc disease, history of prostate cancer, spinal stenosis status post back surgery on 10/11/2024 comes because of weakness and ambulatory dysfunction and back pain. Patient states that he has been progressively weaker since his procedure. 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 Nephrology evaluated: on urea bid at this time with Lasix MRI with the seroma and s/p ID 10/25. Leukocytosis noted and reports from OP note concerning for developing infection Vanc Zosyn started on 10/25 postoperatively. ID consulted: transitioned to IV ampcillin Plan for 6 weeks IV ampcillin EOT 12/07 will need chronic suppressive thereafter and ID follow up Acute encephalopathy, suspect delirium noted last admission, fluctuating, intermittent visual hallucinations Will avoid benzos and antipsychotics as able and opt for reorientation Suspect multifactorial iso pain/hospitalization/prior episodes improved Seroma, concern for infectious development, s/p ID 10/25 Generalized Weakness Ambulatory dysfunction Ongoing Back pain s/p back surgery PT OT: rehab CT lumbar spine and CT abdomen pelvis no acute findings Orthospine consult: MRI with seroma -I&D this morning anticipated Concern for infection per ortho OP note: -Started Vanc/Zosyn 10/25 -Consult ID for recs given enterococcus: plan IV ampicillin q 6 hours EOT 12/07 chronic suppressive therapy, ID follow up Hyponatremia, suspect SIADH 2/2 pain d/c fluids, low serum osmo with urine osmo >100 FR 1200, Trend BMP qd tsh and cortisol wnl Nephrology consulted, reviewed recommendations:urea bid for now, s/p 1x lasix Leukocytosis Chest x-ray okay suspect reactive iso pain and seroma noted to have enterococcus in cultures continue broad coverage with abx and narrow with culture ID consult Mild elevation troponin plateaued, asymptomatic EKG okay likely demand, low suspicion for ACS Anemia, likely inflammatory, 2/2 post op losses Hemoglobin 8.5, Fe 10, TIBC 204, Transferrin sat 5%, ferritin 445.2 Hemoglobin was 8 on 10/15/2024 notable postop changes Prediabetes CTM glucose in 120s Hypertension on amlodipine, and lisinopril Hyperlipidemia On statin Depression On Zoloft Ascending aortic enlargement Borderline enlarged at 3.7 cm on echo 12/2023 DVT prophylaxis Lovenox held for procedure, SCDs. Disposition Medical floor Full code Admission and Anticipated Discharge Date Admission Date: October 21, 2024 Subjective pt was seen in the AM States now having diarhea so would like laxatives stopped called and updated at about 6pm Review of Systems Review of Systems: All systems reviewed & are unremarkable except as noted in Subjective Physical Exam Physical Exam: General: Alert, oriented. No acute distress HEENT: NC/AT CV: RRR Resp: Breath sounds clear bilaterally, no increased effort of breathing Abdomen: Soft, nontender Extremities: No edema in lower extremities bilaterally. Results & Data Results & Data Vital Signs (Past 12 Hours) Vital Signs Temp Pulse Resp BP Pulse Ox O2 Del Method 10/27/24 07:24 36.6 C 60 18 142/60 H 96 Room Air
[2024-10-27] MEDS: MAGNESIUM SULFATE / D5W 1 GM/100 ML BAG IV SCH (17:57)
[2024-10-28 08:06] LABS: Basophils # (auto) 0.01 K/uL (0.00-0.20); Basophils % (auto) 0.1 %; Eosinophils # (auto) 0.06 K/uL (0.00-0.50); Eosinophils % (auto) 0.8 %; Hematocrit (blood only) 25.1 % (42.0-52.0); Hemoglobin 8.1 g/dl (14.0-18.0); Immature Granulocytes # (auto) 0.09 K/uL (0.01-0.20); Immature Granulocytes % (auto) 1.1 %; Lymphocytes # (auto) 1.27 K/uL (1.20-3.40); Mean Corpuscular Hemoglobin 28.7 pg (25.0-34.0); Mean Corpuscular Hgb Conc 32.3 g/dL (32.0-36.0); Mean Platelet Volume 9.8 fL (9.4-12.4); Monocytes # (auto) 0.75 K/uL (0.11-0.59); Monocytes % (auto) 9.4 %; Neutrophils # (auto) 5.77 K/uL (1.40-6.50); Neutrophils % (auto) 72.6 %; Platelet Count 411 K/uL (130-400); RDW Coefficient of Variation 13.6 % (11.5-14.5); RDW Standard Deviation 44.7 fL (36.4-46.3); Red Blood Count 2.82 M/uL (4.70-6.10); White Blood Count 7.95 K/ul (4.8-10.8)
--- NOTE | 2024-10-28 08:36 | Orthopedic Progress Note ---
Date of Service October 28, 2024 Assessment & Plan (1) Status post incision and drainage: Plan: At this time he is progressing appropriately. Will continue with therapy. Hopefully discharge to rehab. Questioning possible PICC line placement today. Admission and Anticipated Discharge Date Admission Date: October 21, 2024 Subjective Patient's back pain is controlled. Denies any leg pain. Physical Exam Physical Exam: Patient is currently in bed. WES drains are functioning. Distracted testing. Results & Data Vital Signs (Past 12 Hours) Vital Signs Temp Pulse Resp BP Pulse Ox O2 Del Method 10/28/24 07:05 36.6 C 55 L 16 165/71 H 97 Room Air 10/27/24 21:27 36.6 C 65 18 163/68 H 97 Room Air
[2024-10-28 08:37] LABS: Albumin Globulin Ratio 0.9 (0.9-2); Albumin Level 2.9 gm/dl (3.4-5.0); Bilirubin,Total 0.3 mg/dl (0.2-1.0); Calcium 8.9 mg/dl (8.6-10.3); Creatinine Clr Calc Pharmacy 79.8 ml/min; Globulin 3.2 gm/dl (2.5-4.0); Magnesium 1.9 mg/dl (1.7-2.4); Phosphorus 4.7 mg/dl (2.5-4.9); Potassium 4.3 mmol/L (3.5-5.1); Total Protein 6.1 gm/dl (6.0-8.3)
[2024-10-28] MEDS: HYDROmorphone INJ 0.5 MG/0.5 ML SYR IV PRN (11:42)
--- NOTE | 2024-10-28 12:11 | Nephrology Progress Note ---
Date of Service October 28, 2024 Assessment & Plan (1) Chronic hyponatremia: Plan: Due to syndrome of inappropriate ADH. Main trigger is back pain and sertraline, but would not stop sertraline. Na was wnl until surgery. admitted 10/21 w/ sNa 129; has remained in this area ever since. Sodium is up to 134 today. Urine osmolality 742 and urine sodium of 31. - cont increased urea to 30 gm bid; increase in urea is expected - high-protein diet about 80 gm daily; continue protein shakes which do NOT count toward FR - >>> started lasix 10 mg IV bid17 on 10/27 and upped to 20 mg bid today as of AM - >>> started K 10 mEq bid 10/27 and up to 20 mEq bid today >>>placed lisinopril on hold to lower SHAWN risk - fluid limit 1.8 L daily TOWARD WHICH PROTEIN shakes do NOT count - maintain eukalemia - daily BMP - continue sertraline for now; can reevaluate dose/indications at OP follow-up with PCP Care coordinated w/ Dr Stout via TText re increasing lasix and K standing, holding ACEI; we are in agreement will follow while in house; will need OP f/u for med titration (hopefully weaning) (2) Hypertension: Plan: blood pressure is improving though still elevated. Continue amlodipine. Coreg 3.125 mg twice daily added 10/24 PM. >standing lasix as above; ACEi on hold and will hold coreg d/t bradycardia (3) Back pain: Plan: Continue pain control per primary team. s/p 10/26 I&D > w/ E faecalis >> for 6 wks ampicillin and then chronic suppressive tx / amoxicillin Admission and Anticipated Discharge Date Admission Date: October 21, 2024 Subjective no interval events. denies uncontrolled pain; states eating better; no sob; no n/v. no edema. soem challenges starting urinary stream but voiding Review of Systems 2 Review of Systems: All systems reviewed & are unremarkable except as noted in Subjective Physical Exam 2 Constitutional: well developed, well nourished, + frail appearing and cooperative; no acute distress Eyes: EOM intact bilaterally ENMT: Ears: no external ear abnormality Nose: no external nose abnormality Mouth: + dry oral mucous membranes Neck: no nuchal rigidity Respiratory: normal respiratory effort Auscultation: + diminished lung sounds Cardiovascular: Rate/Rhythm: regular rate, regular rhythm and + bradycardic (in 50s) Extremities: no edema Gastrointestinal (Abdomen): Inspection/Auscultation: normal bowel sounds and + abdominal surgical drain present Percussion/Palpation: abdomen soft; abdomen nontender Musculoskeletal: Extremities: strength 5/5 throughout (valdez) Skin: no rashes, warm and dry Psychiatric: Orientation: alert and oriented to person Results & Data Vital Signs (Past 12 Hours) Vital Signs Temp Pulse Resp BP Pulse Ox O2 Del Method 10/28/24 07:05 36.6 C 55 L 16 165/71 H 97 Room Air Laboratory Results 10/28/24 07:36 10/28/24 07:36
[2024-10-28] MEDS: POTASSIUM CHLORIDE 10 MEQ TABCR PO SCH (12:23)
[2024-10-28] MEDS: FUROSEMIDE INJ 20 MG/2 ML VIAL IV ONE (12:23)
--- NOTE | 2024-10-28 15:39 | Hospitalist Progress Note ---
Date of Service October 28, 2024 Assessment & Plan (1) Weakness: Plan: Mr. Polo is a 79-year-old male with past medical history significant for dyslipidemia, prediabetes, ascending aortic enlargement, left bundle branch block, hypertension, irritable bowel syndrome, steatohepatitis, generalized osteoarthritis, lumbar disc disease, history of prostate cancer, spinal stenosis status post back surgery on 10/11/2024 comes because of weakness and ambulatory dysfunction and back pain. Patient states that he has been progressively weaker since his procedure. 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 Nephrology evaluated: on urea bid at this time with Lasix MRI with the seroma and s/p ID 10/25. Leukocytosis noted and reports from OP note concerning for developing infection Vanc Zosyn started on 10/25 postoperatively. ID consulted: transitioned to IV ampcillin Plan for 6 weeks IV ampcillin EOT 12/07 will need chronic suppressive thereafter and ID follow up Acute encephalopathy, suspect delirium noted last admission, fluctuating, intermittent visual hallucinations Will avoid benzos and antipsychotics as able and opt for reorientation Suspect multifactorial iso pain/hospitalization/prior episodes improved Seroma, concern for infectious development, s/p ID 10/25 Generalized Weakness Ambulatory dysfunction Ongoing Back pain s/p back surgery PT OT: rehab CT lumbar spine and CT abdomen pelvis no acute findings Orthospine consult: MRI with seroma -I&D this morning anticipated Concern for infection per ortho OP note: -Started Vanc/Zosyn 10/25 -Consult ID for recs given enterococcus: plan IV ampicillin q 6 hours EOT 12/07 chronic suppressive therapy, ID follow up PICC ordered for placement with consent over the phone. Hyponatremia, suspect SIADH 2/2 pain d/c fluids, low serum osmo with urine osmo >100 FR 1200, Trend BMP qd tsh and cortisol wnl Nephrology consulted, reviewed recommendations:urea bid for now, s/p 1x lasix Leukocytosis Chest x-ray okay suspect reactive iso pain and seroma noted to have enterococcus in cultures continue broad coverage with abx and narrow with culture ID consult Mild elevation troponin plateaued, asymptomatic EKG okay likely demand, low suspicion for ACS Anemia, likely inflammatory, 2/2 post op losses Hemoglobin 8.5, Fe 10, TIBC 204, Transferrin sat 5%, ferritin 445.2 Hemoglobin was 8 on 10/15/2024 notable postop changes Prediabetes CTM glucose in 120s Hypertension on amlodipine, and lisinopril Hyperlipidemia On statin Depression On Zoloft Ascending aortic enlargement Borderline enlarged at 3.7 cm on echo 12/2023 DVT prophylaxis Lovenox held for procedure, SCDs. Disposition Medical floor Full code Admission and Anticipated Discharge Date Admission Date: October 21, 2024 Subjective Pt was sen in the AM AAOx2 PICC consent signed with over the phone Noted pain at time of exam Review of Systems Review of Systems: All systems reviewed & are unremarkable except as noted in Subjective Physical Exam Physical Exam: General: Alert, oriented. No acute distress HEENT: NC/AT CV: RRR Resp: Breath sounds clear bilaterally, no increased effort of breathing Abdomen: Soft, nontender Extremities: No edema in lower extremities bilaterally. Results & Data Results & Data Vital Signs (Past 12 Hours) Vital Signs Temp Pulse Resp BP Pulse Ox O2 Del Method 10/28/24 14:06 36.6 C 59 L 16 176/58 H 97 Room Air 10/28/24 07:05 36.6 C 55 L 16 165/71 H 97 Room Air
[2024-10-28] MEDS: FUROSEMIDE INJ 20 MG/2 ML VIAL IV SCH (17:00)
[2024-10-29 07:40] LABS: Basophils # (auto) 0.01 K/uL (0.00-0.20); Basophils % (auto) 0.1 %; Eosinophils # (auto) 0.08 K/uL (0.00-0.50); Eosinophils % (auto) 0.9 %; Hematocrit (blood only) 26.1 % (42.0-52.0); Hemoglobin 8.4 g/dl (14.0-18.0); Immature Granulocytes # (auto) 0.07 K/uL (0.01-0.20); Immature Granulocytes % (auto) 0.8 %; Lymphocytes # (auto) 1.15 K/uL (1.20-3.40); Lymphocytes % (auto) 13.5 %; Mean Corpuscular Hemoglobin 29.5 pg (25.0-34.0); Mean Corpuscular Hgb Conc 32.2 g/dL (32.0-36.0); Mean Corpuscular Volume 91.6 fL (80.0-100.0); Monocytes # (auto) 0.65 K/uL (0.11-0.59); Monocytes % (auto) 7.6 %; Neutrophils # (auto) 6.57 K/uL (1.40-6.50); Neutrophils % (auto) 77.1 %; Platelet Count 416 K/uL (130-400); RDW Coefficient of Variation 13.6 % (11.5-14.5); RDW Standard Deviation 46.2 fL (36.4-46.3); Red Blood Count 2.85 M/uL (4.70-6.10); White Blood Count 8.53 K/ul (4.8-10.8)
[2024-10-29 08:29] LABS: Albumin Level 2.9 gm/dl (3.4-5.0); Bilirubin,Total 0.3 mg/dl (0.2-1.0); Calcium 9.5 mg/dl (8.6-10.3); Magnesium 1.8 mg/dl (1.7-2.4); Potassium 4.3 mmol/L (3.5-5.1)
[2024-10-29 08:35] LABS: Albumin Globulin Ratio 0.8 (0.9-2); BUN Creatinine Ratio 68.6 (10-20); Creatinine Clr Calc Pharmacy 79.8 ml/min; Globulin 3.6 gm/dl (2.5-4.0); Phosphorus 4.6 mg/dl (2.5-4.9); Total Protein 6.5 gm/dl (6.0-8.3)
--- NOTE | 2024-10-29 10:12 | Orthopedic Progress Note ---
Date of Service October 29, 2024 Assessment & Plan (1) Status post incision and drainage: Plan: At this time from an orthopedic standpoint he is good for discharge to rehab. I would maintain both drains. I asked that he follow-up in our office next week for wound check and possible drain removal. Admission and Anticipated Discharge Date Admission Date: October 21, 2024 Subjective Patient states back pain is controlled and is tolerating physical therapy. Physical Exam Physical Exam: On exam patient is currently in bed. Alert and oriented. Good strength testing. Results & Data Vital Signs (Past 12 Hours) Vital Signs Temp Pulse Resp BP Pulse Ox O2 Del Method 10/29/24 08:14 36.6 C 57 L 12 179/64 H 99 Room Air
--- NOTE | 2024-10-29 10:29 | Nephrology Progress Note ---
Date of Service October 29, 2024 Assessment & Plan (1) Chronic hyponatremia: Plan: Due to syndrome of inappropriate ADH. Main trigger is back pain and sertraline, but would not stop sertraline. Na was wnl until surgery. admitted 10/21 w/ sNa 129; has remained in this area ever since. Sodium is up to 134 today. Urine osmolality 742 and urine sodium of 31. Will sign off reviewed indication for urea w/ and explained cost issues >> she will get it online; advised her to order now NEPHRO D/C RECS DXS: SIADH; HTN often uncontrolled RXS: -urea 15 gm bid >> pls alert family this may cost a few hundred $ monthly and is not covered by insurance; most pharmacies need a few days to get it; can be gotten online -torsemide 20 mg daily -potassium chloride 10 mEq daily -HOLD lisinopril at d/c pending follow up bmp on new torsemide rx; HOLD coreg d/t bradycardia -amlodipine 10 mg daily OTHER POST D/C CARE: - high-protein diet about 80 gm daily >> the better he does at this the less he'll need urea - protein shakes which do NOT count toward daily fluid limit - daily fluid limit 1.8L - PCP may want to reconsider sertraline for alternate med w/ lower potential for SIADH if feasible - BMP, cbc at PCP f/u visit w/in one week of hospital d/c or weekly if to facility x 4 wks or as per infectious dzs recs F/U APPTS - hospital d/c appt CKD clinic w/ me 2 wks after d/c w/ neph nurse to order cmp, urine/serum osms, urine lytes, ACR, uacm AND pt to bring home bp cuff if he has one along to appt to evaluate it Care coordinated w/ Dr Stout via [employer] re d/c recommendations above; we are in agreement. (2) Hypertension: Plan: blood pressure is improving though still elevated. Continue amlodipine. Coreg 3.125 mg twice daily added 10/24 PM. >standing lasix as above; ACEi on hold and will hold coreg d/t bradycardia (3) Back pain: Plan: Continue pain control per primary team. s/p 10/26 I&D > w/ E faecalis >> for 6 wks ampicillin and then chronic suppressive tx / amoxicillin Admission and Anticipated Discharge Date Admission Date: October 21, 2024 Subjective no interval events. taking po well; denies uncontrolled pain; no n/v; no edema. no sob. bedside Review of Systems 2 Review of Systems: All systems reviewed & are unremarkable except as noted in Subjective Physical Exam 2 Constitutional: well developed, well nourished, + frail appearing and cooperative; no acute distress Eyes: EOM intact bilaterally ENMT: Ears: no external ear abnormality Nose: no external nose abnormality Mouth: + dry oral mucous membranes Neck: no nuchal rigidity Respiratory: normal respiratory effort Auscultation: + diminished lung sounds Cardiovascular: Rate/Rhythm: regular rate, regular rhythm and + bradycardic (in 50s) Extremities: no edema Gastrointestinal (Abdomen): Inspection/Auscultation: normal bowel sounds and + abdominal surgical drain present Percussion/Palpation: abdomen soft; abdomen nontender Musculoskeletal: Extremities: strength 5/5 throughout (valdez) Skin: no rashes, warm and dry Psychiatric: Orientation: alert and oriented to person Results & Data Vital Signs (Past 12 Hours) Vital Signs Temp Pulse Resp BP Pulse Ox O2 Del Method 10/29/24 08:14 36.6 C 57 L 12 179/64 H 99 Room Air Laboratory Results 10/29/24 06:39 10/29/24 06:39
--- NOTE | 2024-10-29 12:31 | Hospitalist Progress Note ---
Date of Service October 29, 2024 Assessment & Plan (1) Weakness: Plan: Mr. Polo is a 79-year-old male with past medical history significant for dyslipidemia, prediabetes, ascending aortic enlargement, left bundle branch block, hypertension, irritable bowel syndrome, steatohepatitis, generalized osteoarthritis, lumbar disc disease, history of prostate cancer, spinal stenosis status post back surgery on 10/11/2024 comes because of weakness and ambulatory dysfunction and back pain. Patient states that he has been progressively weaker since his procedure. 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 Nephrology evaluated: on urea bid at this time with Lasix MRI with the seroma and s/p ID 10/25. Leukocytosis noted and reports from OP note concerning for developing infection Vanc Zosyn started on 10/25 postoperatively. ID consulted: transitioned to IV ampcillin Plan for 6 weeks IV ampcillin EOT 12/07 will need chronic suppressive thereafter and ID follow up pt stable for discharge, currently awaiting placement Acute encephalopathy, suspect delirium noted last admission, fluctuating, intermittent visual hallucinations Will avoid benzos and antipsychotics as able and opt for reorientation Suspect multifactorial iso pain/hospitalization/prior episodes improved Seroma, concern for infectious development, s/p ID 10/25 Generalized Weakness Ambulatory dysfunction Ongoing Back pain s/p back surgery PT OT: rehab CT lumbar spine and CT abdomen pelvis no acute findings Orthospine consult: MRI with seroma -I&D Concern for infection per ortho OP note: -Started Vanc/Zosyn 10/25 -Consult ID for recs given enterococcus: plan IV ampicillin q 6 hours EOT 12/07 chronic suppressive therapy, ID follow up PICC ordered for placement with consent over the phone. Hyponatremia, suspect SIADH 2/2 pain d/c fluids, low serum osmo with urine osmo >100 FR 1200, Trend BMP qd tsh and cortisol wnl Nephrology consulted, reviewed recommendations:urea bid for now, s/p 1x lasix Leukocytosis Chest x-ray okay suspect reactive iso pain and seroma noted to have enterococcus in cultures continue broad coverage with abx and narrow with culture ID consult Mild elevation troponin plateaued, asymptomatic EKG okay likely demand, low suspicion for ACS Anemia, likely inflammatory, 2/2 post op losses Hemoglobin 8.5, Fe 10, TIBC 204, Transferrin sat 5%, ferritin 445.2 Hemoglobin was 8 on 10/15/2024 notable postop changes Prediabetes CTM glucose in 120s Hypertension on amlodipine, and lisinopril Hyperlipidemia On statin Depression On Zoloft Ascending aortic enlargement Borderline enlarged at 3.7 cm on echo 12/2023 DVT prophylaxis Lovenox held for procedure, SCDs. Disposition Medical floor Full code Admission and Anticipated Discharge Date Admission Date: October 21, 2024 Subjective pt was seen laying in bed PICC placed No acute concerns Waiting on [facility] for the [facility] Review of Systems Review of Systems: All systems reviewed & are unremarkable except as noted in Subjective Physical Exam Physical Exam: General: Alert, oriented. No acute distress HEENT: NC/AT CV: RRR Resp: Breath sounds clear bilaterally, no increased effort of breathing Abdomen: Soft, nontender Extremities: No edema in lower extremities bilaterally. Results & Data Results & Data Vital Signs (Past 12 Hours) Vital Signs Temp Pulse Resp BP Pulse Ox O2 Del Method 10/29/24 08:14 36.6 C 57 L 12 179/64 H 99 Room Air
[2024-10-29] MEDS: hydrOXYzine HCl 25 MG TAB PO PRN (20:56)
--- NOTE | 2024-10-30 08:22 | Orthopedic Progress Note ---
Date of Service October 30, 2024 Assessment & Plan (1) Status post incision and drainage: Plan: This time we will continue physical therapy await for placement at rehab. Admission and Anticipated Discharge Date Admission Date: October 21, 2024 Subjective Patient's back pain is controlled. He is tolerating physical therapy. Physical Exam Physical Exam: Patient currently in bed. Has good strength testing. Results & Data Vital Signs (Past 12 Hours) Vital Signs Temp Pulse Resp BP Pulse Ox O2 Del Method 10/30/24 07:21 36.6 C 64 16 174/82 H 96 Room Air 10/29/24 23:56 36.6 C 57 L 18 156/53 H 98 Room Air
[2024-10-30 08:27] LABS: Basophils # (auto) 0.02 K/uL (0.00-0.20); Basophils % (auto) 0.2 %; Eosinophils # (auto) 0.07 K/uL (0.00-0.50); Eosinophils % (auto) 0.7 %; Hematocrit (blood only) 29.2 % (42.0-52.0); Hemoglobin 9.3 g/dl (14.0-18.0); Lymphocytes # (auto) 1.22 K/uL (1.20-3.40); Mean Corpuscular Hemoglobin 28.7 pg (25.0-34.0); Mean Corpuscular Hgb Conc 31.8 g/dL (32.0-36.0); Mean Corpuscular Volume 90.1 fL (80.0-100.0); Mean Platelet Volume 9.9 fL (9.4-12.4); Monocytes # (auto) 0.67 K/uL (0.11-0.59); Monocytes % (auto) 6.6 %; Neutrophils # (auto) 8.09 K/uL (1.40-6.50); Neutrophils % (auto) 79.5 %; Platelet Count 444 K/uL (130-400); RDW Coefficient of Variation 13.7 % (11.5-14.5); RDW Standard Deviation 45.1 fL (36.4-46.3); Red Blood Count 3.24 M/uL (4.70-6.10); White Blood Count 10.17 K/ul (4.8-10.8)
[2024-10-30 09:48] LABS: BUN Creatinine Ratio 60.5 (10-20); Creatinine Clr Calc Pharmacy 68.9 ml/min; Phosphorus 4.8 mg/dl (2.5-4.9)
[2024-10-30 13:13] LABS: Albumin Globulin Ratio 0.8 (0.9-2); Albumin Level 3.2 gm/dl (3.4-5.0); Bilirubin,Total 0.3 mg/dl (0.2-1.0); Calcium 9.5 mg/dl (8.6-10.3); Globulin 3.8 gm/dl (2.5-4.0); Magnesium 1.9 mg/dl (1.7-2.4); Potassium 4.4 mmol/L (3.5-5.1)
--- NOTE | 2024-10-30 14:07 | Hospitalist Progress Note ---
Date of Service October 30, 2024 Assessment & Plan (1) Weakness: Plan: Mr. Polo is a 79-year-old male with past medical history significant for dyslipidemia, prediabetes, ascending aortic enlargement, left bundle branch block, hypertension, irritable bowel syndrome, steatohepatitis, generalized osteoarthritis, lumbar disc disease, history of prostate cancer, spinal stenosis status post back surgery on 10/11/2024 comes because of weakness and ambulatory dysfunction and back pain. Patient states that he has been progressively weaker since his procedure. 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 Nephrology evaluated: on urea bid at this time with Lasix MRI with the seroma and s/p ID 10/25. Leukocytosis noted and reports from OP note concerning for developing infection Vanc Zosyn started on 10/25 postoperatively. ID consulted: transitioned to IV ampcillin Plan for 6 weeks IV ampcillin EOT 12/07 will need chronic suppressive thereafter and ID follow up pt stable for discharge, currently awaiting placement Acute encephalopathy, suspect delirium noted last admission, fluctuating, intermittent visual hallucinations Will avoid benzos and antipsychotics as able and opt for reorientation Suspect multifactorial iso pain/hospitalization/prior episodes improved Seroma, concern for infectious development, s/p ID 10/25 Generalized Weakness Ambulatory dysfunction Ongoing Back pain s/p back surgery PT OT: rehab CT lumbar spine and CT abdomen pelvis no acute findings Orthospine consult: MRI with seroma -I&D Concern for infection per ortho OP note: -Started Vanc/Zosyn 10/25 -Consult ID for recs given enterococcus: plan IV ampicillin q 6 hours EOT 12/07 chronic suppressive therapy, ID follow up PICC ordered for placement with consent over the phone. Hyponatremia, suspect SIADH 2/2 pain d/c fluids, low serum osmo with urine osmo >100 FR 1200, Trend BMP qd tsh and cortisol wnl Nephrology consulted, reviewed recommendations:urea bid for now, s/p 1x lasix Leukocytosis Chest x-ray okay suspect reactive iso pain and seroma noted to have enterococcus in cultures continue broad coverage with abx and narrow with culture ID consult Mild elevation troponin plateaued, asymptomatic EKG okay likely demand, low suspicion for ACS Anemia, likely inflammatory, 2/2 post op losses Hemoglobin 8.5, Fe 10, TIBC 204, Transferrin sat 5%, ferritin 445.2 Hemoglobin was 8 on 10/15/2024 notable postop changes Prediabetes CTM glucose in 120s Hypertension on amlodipine, and lisinopril Hyperlipidemia On statin Depression On Zoloft Ascending aortic enlargement Borderline enlarged at 3.7 cm on echo 12/2023 DVT prophylaxis Lovenox held for procedure, SCDs. Disposition Medical floor Full code Admission and Anticipated Discharge Date Admission Date: October 21, 2024 Subjective Seen in the AM Denies acute concerns Awaiting placement Review of Systems Review of Systems: All systems reviewed & are unremarkable except as noted in Subjective Physical Exam Physical Exam: General: Alert, oriented. No acute distress HEENT: NC/AT CV: RRR Resp: Breath sounds clear bilaterally, no increased effort of breathing Abdomen: Soft, nontender Extremities: No edema in lower extremities bilaterally. Results & Data Results & Data Vital Signs (Past 12 Hours) Vital Signs Temp Pulse Resp BP Pulse Ox O2 Del Method 10/30/24 07:21 36.6 C 64 16 174/82 H 96 Room Air
--- NOTE | 2024-10-31 13:55 | Hospitalist Progress Note ---
Date of Service October 31, 2024 Assessment & Plan (1) Weakness: Plan: Mr. Polo is a 79-year-old male with past medical history significant for dyslipidemia, prediabetes, ascending aortic enlargement, left bundle branch block, hypertension, irritable bowel syndrome, steatohepatitis, generalized osteoarthritis, lumbar disc disease, history of prostate cancer, spinal stenosis status post back surgery on 10/11/2024 comes because of weakness and ambulatory dysfunction and back pain. Patient states that he has been progressively weaker since his procedure. 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 Nephrology evaluated: on urea bid at this time with Lasix MRI with the seroma and s/p ID 10/25. Leukocytosis noted and reports from OP note concerning for developing infection Vanc Zosyn started on 10/25 postoperatively. ID consulted: transitioned to IV ampcillin Plan for 6 weeks IV ampcillin EOT 12/07 will need chronic suppressive thereafter and ID follow up pt stable for discharge, currently awaiting placement Acute encephalopathy, suspect delirium noted last admission, fluctuating, intermittent visual hallucinations Will avoid benzos and antipsychotics as able and opt for reorientation Suspect multifactorial iso pain/hospitalization/prior episodes improved Seroma, concern for infectious development, s/p ID 10/25 Generalized Weakness Ambulatory dysfunction Ongoing Back pain s/p back surgery PT OT: rehab CT lumbar spine and CT abdomen pelvis no acute findings Orthospine consult: MRI with seroma -I&D Concern for infection per ortho OP note: -Started Vanc/Zosyn 10/25 -Consult ID for recs given enterococcus: plan IV ampicillin q 6 hours EOT 12/07 chronic suppressive therapy, ID follow up PICC ordered for placement with consent over the phone. Hyponatremia, suspect SIADH 2/2 pain d/c fluids, low serum osmo with urine osmo >100 FR 1200, Trend BMP qd tsh and cortisol wnl Nephrology consulted, reviewed recommendations:urea bid for now, s/p 1x lasix Leukocytosis Chest x-ray okay suspect reactive iso pain and seroma noted to have enterococcus in cultures continue broad coverage with abx and narrow with culture ID consult Mild elevation troponin plateaued, asymptomatic EKG okay likely demand, low suspicion for ACS Anemia, likely inflammatory, 2/2 post op losses Hemoglobin 8.5, Fe 10, TIBC 204, Transferrin sat 5%, ferritin 445.2 Hemoglobin was 8 on 10/15/2024 notable postop changes Prediabetes CTM glucose in 120s Hypertension on amlodipine, and lisinopril Hyperlipidemia On statin Depression On Zoloft Ascending aortic enlargement Borderline enlarged at 3.7 cm on echo 12/2023 DVT prophylaxis Lovenox held for procedure, SCDs. Disposition Medical floor Full code Admission and Anticipated Discharge Date Admission Date: October 21, 2024 Subjective pt was seen sitting in chair near the bed No acute concerns called and updated- she notes he used alcohol in the past, concerned about abx interacting in this setting though she notes he is not currently in withdrawal and has not had a drink for some time. reassured. Review of Systems Review of Systems: All systems reviewed & are unremarkable except as noted in Subjective Physical Exam Physical Exam: General: Alert, oriented. No acute distress HEENT: NC/AT CV: RRR Resp: Breath sounds clear bilaterally, no increased effort of breathing Abdomen: Soft, nontender Extremities: No edema in lower extremities bilaterally. Results & Data Results & Data Vital Signs (Past 12 Hours) Vital Signs Temp Pulse Resp BP Pulse Ox O2 Del Method 10/31/24 07:24 36.6 C 70 15 165/72 H 98 Room Air
[2024-10-31] MEDS: ADVANCED PROBIOTIC 625 MG CAPSULE PO SCH (17:04)
[2024-11-01 07:57] LABS: Basophils # (auto) 0.03 K/uL (0.00-0.20); Basophils % (auto) 0.3 %; Eosinophils # (auto) 0.16 K/uL (0.00-0.50); Eosinophils % (auto) 1.9 %; Hematocrit (blood only) 31.7 % (42.0-52.0); Hemoglobin 10.1 g/dl (14.0-18.0); Immature Granulocytes # (auto) 0.08 K/uL (0.01-0.20); Immature Granulocytes % (auto) 0.9 %; Lymphocytes # (auto) 1.36 K/uL (1.20-3.40); Lymphocytes % (auto) 15.8 %; Mean Corpuscular Hemoglobin 28.6 pg (25.0-34.0); Mean Corpuscular Hgb Conc 31.9 g/dL (32.0-36.0); Mean Corpuscular Volume 89.8 fL (80.0-100.0); Mean Platelet Volume 9.9 fL (9.4-12.4); Monocytes # (auto) 0.64 K/uL (0.11-0.59); Monocytes % (auto) 7.4 %; Neutrophils # (auto) 6.36 K/uL (1.40-6.50); Neutrophils % (auto) 73.7 %; Platelet Count 491 K/uL (130-400); RDW Coefficient of Variation 13.9 % (11.5-14.5); RDW Standard Deviation 45.7 fL (36.4-46.3); Red Blood Count 3.53 M/uL (4.70-6.10); White Blood Count 8.63 K/ul (4.8-10.8)
[2024-11-01 08:17] LABS: Albumin Globulin Ratio 0.8 (0.9-2); Albumin Level 3.4 gm/dl (3.4-5.0); Bilirubin,Total 0.3 mg/dl (0.2-1.0); Calcium 9.8 mg/dl (8.6-10.3); Creatinine Clr Calc Pharmacy 68.1 ml/min; Globulin 4.3 gm/dl (2.5-4.0); Potassium 4.5 mmol/L (3.5-5.1); Total Protein 7.7 gm/dl (6.0-8.3)
[2024-11-01 14:04] VITALS: O2SAT 98
--- NOTE | 2024-11-01 14:59 | Hospitalist Progress Note ---
Date of Service November 01, 2024 Assessment & Plan (1) Weakness: Plan: Mr. Polo is a 79-year-old male with past medical history significant for dyslipidemia, prediabetes, ascending aortic enlargement, left bundle branch block, hypertension, irritable bowel syndrome, steatohepatitis, generalized osteoarthritis, lumbar disc disease, history of prostate cancer, spinal stenosis status post back surgery on 10/11/2024 comes because of weakness and ambulatory dysfunction and back pain. Patient states that he has been progressively weaker since his procedure. 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 Nephrology evaluated: on urea bid at this time with Lasix MRI with the seroma and s/p ID 10/25. Leukocytosis noted and reports from OP note concerning for developing infection Vanc Zosyn started on 10/25 postoperatively. ID consulted: transitioned to IV ampcillin Plan for 6 weeks IV ampcillin EOT 12/07 will need chronic suppressive thereafter and ID follow up pt stable for discharge, currently awaiting placement Acute encephalopathy, suspect delirium noted last admission, fluctuating, intermittent visual hallucinations Will avoid benzos and antipsychotics as able and opt for reorientation Suspect multifactorial iso pain/hospitalization/prior episodes improved Seroma, concern for infectious development, s/p ID 10/25 Generalized Weakness Ambulatory dysfunction Ongoing Back pain s/p back surgery PT OT: rehab CT lumbar spine and CT abdomen pelvis no acute findings Orthospine consult: MRI with seroma -I&D Concern for infection per ortho OP note: -Started Vanc/Zosyn 10/25 -Consult ID for recs given enterococcus: plan IV ampicillin q 6 hours EOT 12/07 chronic suppressive therapy, ID follow up PICC ordered for placement with consent over the phone. Hyponatremia, suspect SIADH 2/2 pain d/c fluids, low serum osmo with urine osmo >100 FR 1200, Trend BMP qd tsh and cortisol wnl Nephrology consulted, reviewed recommendations:urea bid for now, s/p 1x lasix Leukocytosis Chest x-ray okay suspect reactive iso pain and seroma noted to have enterococcus in cultures continue broad coverage with abx and narrow with culture ID consult Mild elevation troponin plateaued, asymptomatic EKG okay likely demand, low suspicion for ACS Anemia, likely inflammatory, 2/2 post op losses Hemoglobin 8.5, Fe 10, TIBC 204, Transferrin sat 5%, ferritin 445.2 Hemoglobin was 8 on 10/15/2024 notable postop changes Prediabetes CTM glucose in 120s Hypertension on amlodipine, and lisinopril Hyperlipidemia On statin Depression On Zoloft Ascending aortic enlargement Borderline enlarged at 3.7 cm on echo 12/2023 DVT prophylaxis Lovenox held for procedure, SCDs. Disposition Medical floor Full code Admission and Anticipated Discharge Date Admission Date: October 21, 2024 Subjective pt was seen with at bedside aaox2 denied acute symptoms Review of Systems Review of Systems: All systems reviewed & are unremarkable except as noted in Subjective Physical Exam Physical Exam: General: Alert, oriented. No acute distress HEENT: NC/AT CV: RRR Resp: Breath sounds clear bilaterally, no increased effort of breathing Abdomen: Soft, nontender Extremities: No edema in lower extremities bilaterally. Results & Data Results & Data Vital Signs (Past 12 Hours) Vital Signs Temp Pulse Resp BP Pulse Ox O2 Del Method 11/01/24 14:03 36.3 C L 51 L 16 130/65 98 Room Air 11/01/24 07:10 36.3 C L 61 17 180/87 H 99 Room Air
[2024-11-02 07:08] LABS: Basophils # (auto) 0.03 K/uL (0.00-0.20); Basophils % (auto) 0.3 %; Eosinophils # (auto) 0.19 K/uL (0.00-0.50); Hematocrit (blood only) 27.2 % (42.0-52.0); Hemoglobin 8.7 g/dl (14.0-18.0); Immature Granulocytes # (auto) 0.07 K/uL (0.01-0.20); Immature Granulocytes % (auto) 0.7 %; Lymphocytes # (auto) 1.55 K/uL (1.20-3.40); Lymphocytes % (auto) 16.1 %; Mean Corpuscular Hemoglobin 28.8 pg (25.0-34.0); Mean Corpuscular Volume 90.1 fL (80.0-100.0); Monocytes # (auto) 0.73 K/uL (0.11-0.59); Monocytes % (auto) 7.6 %; Neutrophils # (auto) 7.05 K/uL (1.40-6.50); Neutrophils % (auto) 73.3 %; Platelet Count 403 K/uL (130-400); RDW Standard Deviation 45.9 fL (36.4-46.3); Red Blood Count 3.02 M/uL (4.70-6.10); White Blood Count 9.62 K/ul (4.8-10.8)
[2024-11-02 07:26] LABS: Albumin Globulin Ratio 0.8 (0.9-2); BUN Creatinine Ratio 76.9 (10-20); Bilirubin,Total 0.2 mg/dl (0.2-1.0); Calcium 9.2 mg/dl (8.6-10.3); Creatinine Clr Calc Pharmacy 61.3 ml/min; Globulin 3.8 gm/dl (2.5-4.0); Potassium 4.1 mmol/L (3.5-5.1); Total Protein 6.8 gm/dl (6.0-8.3)
[2024-11-02 07:31] VITALS: RESP 18; TEMP 98.1
[2024-11-02 09:43] VITALS: BP 166/73; PULSE 56
--- NOTE | 2024-11-02 10:58 | Discharge Summary ---
Discharge Summary Date of Service November 02, 2024 Principal Dx & Hospital Course #1 = Principal Diagnosis (1) Weakness: Mr. Hawthorne is a 79-year-old male with past medical history significant for dyslipidemia, prediabetes, ascending aortic enlargement, left bundle branch block, hypertension, irritable bowel syndrome, steatohepatitis, generalized osteoarthritis, lumbar disc disease, history of prostate cancer, spinal stenosis status post back surgery on 10/11/2024 comes because of weakness and ambulatory dysfunction and back pain. Patient states that he has been progressively weaker since his procedure. Hyponatremic. MRI with the seroma and s/p ID 10/25. Leukocytosis noted and reports from OP note concerning for developing infection Vanc Zosyn started on 10/25 postoperatively. ID consulted: transitioned to IV ampicillin Plan for 6 weeks IV ampicillin with end of treatment date of 12/07 will need chronic suppressive thereafter and ID follow up PICC line placed and pt discharged to acute rehab Acute encephalopathy, suspect delirium noted last admission, fluctuating, intermittent visual hallucinations avoid benzos and antipsychotics as able and opt for reorientation Suspect multifactorial in setting of pain/hospitalization/prior episodes improved Seroma, concern for infectious development, s/p ID 10/25 Generalized Weakness Ambulatory dysfunction Ongoing Back pain s/p back surgery PT OT: rehab CT lumbar spine and CT abdomen pelvis no acute findings Orthospine consult: MRI with seroma -I&D 10/25 Concern for infection per ortho OP note: -Started Vanc/Zosyn 10/25 -Consult ID for recs given enterococcus: plan IV ampicillin q 6 hours EOT 12/07 chronic suppressive therapy, ID follow up PICC ordered for placement, will need removal after rx completion, weekly cbc, cmp, esr/CRP Please ensure close ID and ortho spine followup after discharge Hyponatremia, suspect SIADH 2/2 pain d/c fluids, low serum osmo with urine osmo >100 FR while hospitalized tsh and cortisol wnl Nephrology consulted, recommended the following on discharge by Dr Kristin Serna "NEPHRO D/C RECS DXS: SIADH; HTN often uncontrolled RXS: -urea 15 gm bid >> pls alert family this may cost a few hundred $ monthly and is not covered by insurance; most pharmacies need a few days to get it; can be gotten online -torsemide 20 mg daily -potassium chloride 10 mEq daily -HOLD lisinopril at d/c pending follow up bmp on new torsemide rx; HOLD coreg d/t bradycardia -amlodipine 10 mg daily OTHER POST D/C CARE: - high-protein diet about 80 gm daily >> the better he does at this the less he'll need urea - protein shakes which do NOT count toward daily fluid limit - daily fluid limit 1.8L - PCP may want to reconsider sertraline for alternate med w/ lower potential for SIADH if feasible - BMP, cbc at PCP f/u visit w/in one week of hospital d/c or weekly if to facility x 4 wks or as per infectious dzs recs F/U APPTS - hospital d/c appt CKD clinic w/ me 2 wks after d/c w/ neph nurse to order cmp, urine/serum osms, urine lytes, ACR, uacm AND pt to bring home bp cuff if he has one along to appt to evaluate it" LeukocytosisResolved Chest x-ray okay suspect reactive iso pain and seroma noted to have enterococcus in cultures continue broad coverage with abx and narrow with culture ID consult Mild elevation troponin plateaued, asymptomatic EKG okay likely demand, low suspicion for ACS Anemia, likely inflammatory, 2/2 post op losses Hemoglobin 8.5, Fe 10, TIBC 204, Transferrin sat 5%, ferritin 445.2 Hemoglobin was 8 on 10/15/2024 notable postop changes 8.7 on discharge, pcp followup for continued monitoring Prediabetes stable, pcp f/u Hypertension on amlodipine Per nephrology recs above, hold lisinopril until pcp followup Hyperlipidemia On statin Depression On Zoloft- per nephrology recs above consider alternative agent in setting of SIADH Ascending aortic enlargement Borderline enlarged at 3.7 cm on echo 12/2023 Notes For Next Care Provider As above NEPHRO D/C RECS DXS: SIADH; HTN often uncontrolled RXS: -urea 15 gm bid >> pls alert family this may cost a few hundred $ monthly and is not covered by insurance; most pharmacies need a few days to get it; can be gotten online -torsemide 20 mg daily -potassium chloride 10 mEq daily -HOLD lisinopril at d/c pending follow up bmp on new torsemide rx; HOLD coreg d/t bradycardia -amlodipine 10 mg daily OTHER POST D/C CARE: - high-protein diet about 80 gm daily >> the better he does at this the less he'll need urea - protein shakes which do NOT count toward daily fluid limit - daily fluid limit 1.8L - PCP may want to reconsider sertraline for alternate med w/ lower potential for SIADH if feasible - BMP, cbc at PCP f/u visit w/in one week of hospital d/c or weekly if to facility x 4 wks or as per infectious dzs recs F/U APPTS - hospital d/c appt CKD clinic w/ me 2 wks after d/c w/ neph nurse to order cmp, urine/serum osms, urine lytes, ACR, uacm AND pt to bring home bp cuff if he has one along to appt to evaluate it" Medication Changes From Visit As above Per Nephrology Uread 30g BI Torsemide 20mg daily KCl 10mEq daily Hold lisinopril until pcp followup with BMP Per ID: IV ampicillin End of treatment date of 12/07/24 Probiotic Admission HPI Per Admitting Provider 79-year-old male with past medical history significant for dyslipidemia, prediabetes, ascending aortic enlargement, left bundle branch block, hypertension, irritable bowel syndrome, steatohepatitis, generalized osteoarthritis, lumbar disc disease, history of prostate cancer, spinal stenosis status post back surgery on 10/11/2024 comes because of weakness and ambulatory dysfunction and back pain. As per after back surgery rehab was recommended but patient declined and went home. He was getting physical therapy at home. For first few days he did okay but last few days he was having difficulty ambulating. He was having weakness and also severe back pain which causing ambulatory dysfunction. He also had a bowel accident because he could not ambulate to the bathroom in time as per the . Patient is hard of hearing. in the room helped with H&P. Patient denies any headache. No runny nose or sore throat. No cough. No fevers. No chest pain or shortness of breath. No nausea. Drinking okay but not eating much as per . No abdominal pain. Constipated. Denies any blood in stools or black stools. Micturating okay. Hemodynamics are okay. Past medical history. As mentioned above Past surgical history. Colonoscopy. EGD. EGD with biopsy. EGD with endoscopic ultrasound. ERCP. Injection of lumbosacral spine. Laparoscopic cholecystectomy. Excision of the neck/chest subcutaneous tumor. Robotic laparoscopic prostatectomy. Social history. . No smoking. Snuff. 5.8 standard drinks of alcohol per week as per epic. No drug use. Family history. Mother had heart disorder. Paternal grandmother had heart diso rder. Paternal grandfather had heart disorder. Admission Exam Per Admitting Provider General- Not in distress Head- atraumatic Eyes- PERRL. ENT- oropharynx clear Neck- supple, no JVD. Lungs- clear to auscultation no wheezing or crackles Heart- regular rhythm; no murmur, no gallop. Abdomen- normal bowel sounds, soft, nontender, no distension Extremities- no pretibial edema, no erythema seen Neuro- alert, oriented ; PERRL,no facial palsy; no dysarthria; moves extremities Musculoskeletal recent lower back surgery site no obvious drainage or erythema seen Discharge Exam General: Alert, oriented. No acute distress HEENT: NC/AT CV: RRR Resp: Breath sounds clear bilaterally, no increased effort of breathing Abdomen: Soft, nontender Extremities: No edema in lower extremities bilaterally. Updated Medication List Medication Instructions Recorded Confirmed Type allopurinol 300 mg tablet 300 mg PO QAM 09/21/24 10/21/24 History amlodipine 10 mg tablet (Norvasc) 10 mg PO QAM 09/21/24 10/21/24 History atorvastatin 40 mg tablet (Lipitor) 40 mg PO QAM 09/21/24 10/21/24 History cholecalciferol (vitamin D3) 125 250 mcg PO QAM 09/21/24 10/21/24 History mcg (5,000 unit) tablet (Vitamin D3) lisinopril 40 mg tablet 40 mg PO QAM 09/21/24 10/21/24 History sertraline 100 mg tablet (Zoloft) 100 mg PO QAM 09/21/24 10/21/24 History oxycodone 5 mg tablet 5 mg PO Q6H PRN pain #30 tabs 10/12/24 10/21/24 Rx tramadol 50 mg tablet 50 mg PO Q6H PRN pain, moderate 10/12/24 10/21/24 Rx #30 tabs L.acidop,casei,lactis,rham-B.lact,camryn 1 cap PO DAILY #30 caps 11/02/24 Rx 625 mg (10 billion cell) capsule (Advanced Probiotic) potassium chloride 10 mEq 10 meq PO DAILY #30 tabs 11/02/24 Rx tablet,extended release torsemide 20 mg tablet 20 mg PO QAM #30 tabs 11/02/24 Rx urea 15 gram oral powder packet 30 g PO BID #8 ea 11/02/24 Rx (Ure-Na) Hospital Stay Data Consultations 10/21/24 22:40 ED Decision to Admit Stat 10/22/24 08:00 Consult Orthopedic Spine Surgery Routine 10/23/24 11:10 Consult Nephrology Routine 10/26/24 13:41 Consult Infectious Diseases Routine Procedures Performed Operation Date: 10/25/24 08:20 Actual Procedures p Incision and Drainage Lumbar Spine(Not Applicable) - Sarthak Lira DO Diagnostic Imagining Performed 10/21/24 20:34 CT abd pelvis IV con only Stat CT lumbar spine w con Stat 10/23/24 10:04 MR lumbar spine wo con Routine Chest X-Ray 10/21/24 20:14 Exam(s): XR CXR 1 VIEW EXAM: XR Chest, 1 View CLINICAL HISTORY: Reason for exam: weak. TECHNIQUE: Frontal view of the chest. COMPARISON: 12/05/08 FINDINGS: Lungs: Unremarkable. No consolidation. Pleural space: Unremarkable. No pneumothorax. Heart: Unremarkable. No cardiomegaly. Mediastinum: Unremarkable. Normal mediastinal contour. Bones/joints: Unremarkable. No acute fracture. IMPRESSION: Normal chest x-ray. Electronically signed by: Arturo Smith MD 10/21/24 22:20 PM Abdomen/Pelvis CT 10/21/24 20:34 Exam(s): CT ABDOMEN + PELVIS With Contrast IV Amt: 90 ml optiray 320 EXAM: CT Abdomen and Pelvis With Intravenous Contrast CLINICAL HISTORY: Reason for exam: lower pain. TECHNIQUE: Axial computed tomography images of the abdomen and pelvis with intravenous contrast. Automated exposure control was utilized for the study. A dose lowering technique was utilized adhering to the principles of ALARA. CONTRAST: Patient received 90 ml optiray 320 of IV contrast COMPARISON: 05/08/16 FINDINGS: Lung bases: Subsegmental atelectasis seen in the lung bases. Heart: Mild coronary vascular calcification seen. ABDOMEN: Liver: Unremarkable. No mass. Gallbladder and bile ducts: Cholecystectomy. No ductal dilation. Pancreas: Unremarkable. No mass. No ductal dilation. Spleen: Unremarkable. No splenomegaly. Adrenals: Unremarkable. No mass. Kidneys and ureters: Atherosclerotic calcification seen in the proximal 1 cm of bilateral main renal arteries. No solid mass. No hydronephrosis. Stomach and bowel: Sigmoid colonic diverticulosis. No obstruction. No mucosal thickening. PELVIS: Appendix: No findings to suggest acute appendicitis. Bladder: Unremarkable. No mass. Reproductive: Ductus deferens calcifications are seen. ABDOMEN and PELVIS: Intraperitoneal space: Unremarkable. No free air. No significant fluid collection. Bones/joints: Postlaminectomy changes seen in the lumbar spine along with posterior spinal fusion changes L2-S1 levels along with disc spacers. No acute fracture. No dislocation. Soft tissues: Unremarkable. Vasculature: Moderate atherosclerotic calcification seen in the aorta and its branches. Lymph nodes: Unremarkable. No enlarged lymph nodes. IMPRESSION: No acute abdominal process identified Electronically signed by: Arturo Smith MD 10/21/24 22:[address] 10/21/24 20:34 Exam(s): CT L SPINE With Contrast IV Amt: 90 ml optiray 320 EXAM: CT Lumbar Spine With Intravenous Contrast CLINICAL HISTORY: Reason for exam: weakness, recent lumbar surgery. TECHNIQUE: Axial computed tomography images of the lumbar spine with intravenous contrast. Automated exposure control was utilized for the study. A dose lowering technique was utilized adhering to the principles of ALARA. CONTRAST: Patient received 90 ml optiray 320 of IV contrast COMPARISON: No relevant prior studies available. FINDINGS: Vertebrae: Postlaminectomy changes seen at L2-L5 levels along with L2- S1 posterior spinal fusion changes. Small foci of air seen in the laminectomy bed. The spacers are seen at L2/3, L3/4, L4/5 and L5/S1 junction. Discs/spinal canal/neural foramina: Moderately advanced multilevel degenerative disc disease changes seen along with marginal osteophytes. IMPRESSION: No acute fracture L2-S1 posterior spinal fusion changes. Electronically signed by: Arturo Smith MD 10/21/24 22:31 PM Lumbar Spine MRI 10/23/24 10:04 MRI LUMBAR SPINE WITHOUT CONTRAST TECHNIQUE: An MRI examination of the lumbar spine was performed. The examination consists of sagittal T1-weighted, inversion recovery and T2 weighted images as well as axial T1-weighted, T2-weighted and gradient echo images. INDICATION: Back pain COMPARISON: Lumbar spine CT October 21, 2024. FINDINGS: Redemonstrated postoperative changes of recent L2-S1 posterior instrumented fusion with laminectomies. There is extensive metal artifact arising from the hardware which precludes adequate evaluation of the spine and the paraspinal elements. Within this limitation, there is a fluid in the laminectomy bed which extends approximately 12.0 cm in the craniocaudal dimension. In addition there is a more superficial fluid just deep to the skin in this area which measures 15.5 cm in craniocaudal length. These may represent postsurgical changes given recent surgery such as seroma or hematomas. In this limited examination, there appears to be a broad-based disc bulge at L1-2 immediately superiorly to the surgical levels with bilateral facet arthropathy and thickening of the ligamentum flavum seemingly resulting in high-grade spinal canal and neuroforaminal narrowing. IMPRESSION: Redemonstrated postsurgical changes of recent L2-S1 posterior instrumented fusion with laminectomies. Extensive metal artifact from the hardware precludes adequate evaluation of the spine and the paraspinal elements at these levels. Within this limitation: Fluid collections as described above in the laminectomy bed and more superficially just deep to the skin as above. This may represent postsurgical fluid collection such as seromas or hematomas. Superimposed infection difficult to exclude. Immediately above the surgical level at L1-2, there is a broad-based disc bulge with bilateral facet arthropathy and thickening of the ligamentum flavum apparently resulting in high-grade tricompartmental spinal canal stenosis and neural foraminal narrowing. Electronically signed by Jorge Dixon 10-23-2024 5:15 PM Orbit X-Ray 10/23/24 13:55 Clinical History: MRI clearance Technique: 4 views of the orbits are submitted for review. Findings: No definite sinus opacification is seen. No fracture is evident. No focal osseous lesion is identified. There are no radiopaque foreign bodies. Impression: No visible foreign body. No contraindication to MRI is seen Electronically signed by Glenn Chapman 10-23-2024 2:29 PM Pending Results Patient Have Any Pending Studies at Discharge: No Discharge Instructions Given to Patient (Per Discharging Provider) Mr Hawthorne, You are being discharged. Infectious Disease recommended that you continue with the antibiotic IV Ampicillin with end of treatment date of December 07 2024. You will need to follow up with Infectious Disease after discharge for chronic treatment. You were also seen by the associate professor of violin who recommended that you continue with the medication urea twice a day, torsemide 20mg daily and potassium chloride 10mEq daily. They recommended that you hold the home lisinopril until followup with your primary care provider or your associate professor of violin. Please keep close follow up with your primary care provider, your spine surgeon, Kitchen Cleaner and Infectious Disease after discharge. Please do not hesitate to come back to the emergency room if your symptoms worsen or return. It was a pleasure taking care of you while you were here. Your orthopedic spine surgeon left the following recommendations for you: ACTIVITY RECOMMENDATIONS: SELF CARE INSTRUCTIONS AFTER THORACIC/LUMBAR FUSIONS 1. You may walk to your tolerance. It is good exercise for your legs and back. Expect some back and intermittent leg aches and pains. 2. You may perform "counter-top" level activities (make a sandwich, kaitlin with a project, etc.). 3. No bending or lifting of more than 10 pounds or back twisting of any nature (roll like a log when turning in bed). 4. You may ride in a car for 20-30 minutes at a time. No driving until after your first visit with your doctor. 5. Frequent changes of position and restricting sitting to 30 minutes at a time will help limit the amount of back spasms and stiffness you may experience. 6. You may discontinue the use of ambulatory aids (cane, crutches, etc.) once your strength and confidence allow. 7. You may supervisor mixing the shower and let water strike your incision when you arrive home at least once daily. Do not take a tub bath, sit in a hot tub or go into a swimming pool until after your first recheck in the office. 8. You may resume previous diet. SPECIAL CARE INSTRUCTIONS: VERY IMPORTANT TO READ AND REVIEW A. Your surgical incision has been closed with a cosmetic suture under the skin that will dissolve in about 6 weeks. In 14 days, you can use a pair of clean scissors and cut the suture that is left outside of the skin at the ends of your incision. 1. The small skin tapes can be removed 7 days after surgery if they have not fallen off by that point. 2. You may keep the wound open to air as much as possible to promote healing after post-op day number 5 unless told otherwise by your doctor. 3. If you think the wound looks like it is becoming infected (redness or worsening drainage) and/or you are experiencing fever, chill or worsening back pain and muscle spasms, contact the office so that we may evaluate you as soon as possible. B. Complications are uncommon, but please contact us if you have any signs or symptoms of: 1. wound infection (fever higher than 102.5 degrees F, redness, separation of wound, drainage, or increasing pain from the incision) 2. blood clots in legs (pain, swelling, redness and warmth in legs) 3. urinary tract infection (fever higher than 102.5 degrees F, burning upon urination or increased frequency of urination) 4. nerve problems (inability to walk on your toes or heels, numbness, loss of bowel or bladder control) 5. any other symptoms that concern you C. Please call the office at if you have any concerns or questions about your operation or recovery. D. No smoking! Smoking drastically decreases the chance of a solid fusion. E. Do not take any anti-inflammatory medications (Indocin, Advil, Motrin, Aspirin, Naprosyn, etc.) as these may inhibit the chance of a solid fusion. Tylenol is okay to take for pain. MANAGING PAIN AFTER SPINAL SURGERY 1. Narcotic medication is intended for short-term use and will be provided for surgical pain. Surgical pain usually lasts for a period of 4-6 weeks. Narcotic medication includes Percocet, Vicodin, Darvocet, Tylenol #3 or Lortab. 2. Longer-term pain is more appropriately treated with non-narcotic medication such as Tylenol ES. 3. Muscle spasm is not appropriately treated with narcotics. Muscle relaxers such as Soma, Flexeril or Skelaxin can be used along with Tylenol ES. 4. Remember that we all live with some "aches and pains". This is not unusual or uncommon after an injury or as we get older. a. Back pain is expected and may include muscle spasms for 4 to 6 weeks after surgery. The pain should gradually improve. If the pain worsens for no apparent reason, please contact the office. b. Intermittent leg pain may also be experienced and should not be concerned about unless it worsens for no apparent reason. If so, please contact the office. 5. We will provide appropriate medication within the normal guidelines of their prescribed use. We will also be very cautious and aware of potential abuse and extended duration of patients' medication needs. a. Pain medications are for your comfort and to assist with sleep and rest so that the tissue can heal. They are not provided in order to return to normal activity and should not be used through the day. To do so or worsening pain at night can result from ongoing tissue damage and development of tolerance to the prescribed medicine. 6. Please allow 2-3 days to process refills. Prescriptions will not be mailed but must be picked up at the office. FOLLOW UP VISIT: Keep your scheduled follow-up appointment. Any questions, please call the office at . Total Time Total Time Spent Total Time Spent (In Minutes): 60
[2024-11-03] MEDS ORDERED: TORSEMIDE 20 MG TAB PO SCH (09:00)
== END 2024-11-02 12:00 | DRG 907 ==
LOC: ED 19:53 → SUATTDRO 23:49 → 3N 23:49